=== PATIENT | male | born 1930 | race Caucasian/White ===

== ENCOUNTER 2017-01-26 08:34 | Outpatient (CLI) | payer MEDICARE, BC | END 2017-01-26 08:35 | disposition home or self-care (01) | LOC: BICMAMMO 08:34 | PROVIDERS: ATTEND Internal Medicine Rheumatology | DX: Z13.820 Encounter for screening for osteoporosis (principal) | CPT/HCPCS: 77080 ==

== ENCOUNTER 2019-04-27 20:24 | Inpatient (IN) | payer BC, MEDICARE ==
[2019-04-27 21:00] LABS: #Eosinphils 0.1 thou/uL (0.0-0.7); #Lymphocytes 0.5 thou/uL (1.20-3.40); #Monocytes 1.3 thou/uL (0.11-0.59); #Neutrophils 14.1 thou/uL (1.40-6.50); %Basophils 0.2 % (0.0-1.0); %Eosinophils 0.3 % (0.0-10.0); %Lymphocytes 3.3 % (21.0-51.0); %Monocytes 8.3 % (0.0-10.0); %Neutrophils 87.9 % (42.0-75.0); Hemoglobin 10.6 g/dL (14.0-18.0); Mean Corpuscular HGB CONC 32.9 g/dL (32.0-36.0); Mean Corpuscular Hemoglobin 33.8 pg (27.0-31.0); Mean Platelet Volume 7.7 fL (7.4-10.4); Platelet Count 170 thou/uL (130-400); RBC Distribution Width 13.9 % (11.5-14.5); Red Blood Cell (RBC) Count 3.13 mill/uL (4.70-6.10); White Blood Cell (WBC) Count 16.1 thou/uL (4.8-10.8)
[2019-04-27 21:06] LABS: INR-International Normal Ratio 1.7; PTT 25.7 SEC (22.9-36.1); Prothrombin Time 19.6 SEC (12.0-14.7)
[2019-04-27 21:19] LABS: ALT (SGPT) 28 U/L (8-55); AST (SGOT) 39 U/L (5-34); Albumin 3.1 g/dL (3.4-4.8); Alkaline Phosphatase 94 U/L (40-110); Anion Gap 16 mmol/L (10-20); BUN (Urea Nitrogen) 24 mg/dL (8.4-25.7); CK (CPK) 682 U/L (30-200); Calc. Creatinine Clearance 0 mL/min (70-130); Calcium 8.3 mg/dL (7.8-10.44); Carbon Dioxide 27 mmol/L (23-31); Chloride 98 mmol/L (98-107); Estimated GFR-MDRD 57; Globulin 2.4 g/dL (2.4-3.5); Glucose 297 mg/dL (83-110); Protein, Total 5.5 g/dL (5.8-8.1); Sodium 137 mmol/L (136-145)
[2019-04-27 23:18] LABS: Bilirubin Negative (Negative); Blood, Urine Large (Negative); Glucose, Urine (Dipstick) 250 mg/dL (Negative); Leukocyte Large (Negative); Nitrite Positive (Negative); Protein, Urine (Dipstick) 100 mg/dL (Neg-Trace); Urobilinogen 0.2 mg/dL (Less than 2)
[2019-04-27 23:20] LABS: Clarity CLOUDY (Clear)
[2019-04-27 23:21] LABS: Bacteria/HPF 4+ HPF (None Seen); RBC/HPF Greater than 50 HPF (0-3); WBC/HPF Greater Than 50 HPF (0-3)
[2019-04-27] MEDS ORDERED: Ondansetron PF 4 MG/2 ML Vial IVP PRN (23:46)
[2019-04-27] MEDS ORDERED: Sodium Chloride 0.9% 1,000 ML IV SCH (23:46)
[2019-04-27] MEDS ORDERED: Ondansetron ODT 4 MG TAB SL PRN (23:46)
[2019-04-28 00:36] VITALS: BMI 20.9
[2019-04-28] MEDS ORDERED: HumaLOG 300 UNITS/3 ML VIAL SC PRN (02:13)
[2019-04-28] MEDS ORDERED: Dextrose 50% Abboject 50 ML SYRINGE SLOW IVP PRN (02:13)
[2019-04-28] MEDS ORDERED: Dextrose 5% in Water 1,000 ML IV PRN (02:13)
--- NOTE | 2019-04-28 02:29 | PDOC.FPRHP ---
- History of Present Illness Chief Complaint: hematochezia History of Present Illness: Patient is an 89M with PMHx of afib on eliquis, CHF, CKD3, DM2, BPH with chronic gonzalez brought in from the [place] for hematochezia Patient reportedly had new-onset hematochezia at [facility] and was brought into the ED for further evaluation. He denies any cp, sob, or abdominal pain. Evaluation is limited due to patient's hx of dementia. ED Course: 1L NS - Allergies/Adverse Reactions Allergies Allergy/AdvReac Type Severity Reaction Status Date / Time doxycycline Allergy Verified 04/28/19 01:21 morphine Allergy Verified 04/28/19 01:21 - Home Medications Medication Instructions Recorded Confirmed Type Apixaban [Eliquis] 5 mg PO BID 04/27/19 04/28/19 History Ascorbic Acid [Vitamin C] 500 mg PO BID 04/27/19 04/28/19 History Aspirin [Ecotrin] 81 mg PO DAILY 04/27/19 04/28/19 History Bicalutamide [Casodex] 50 mg PO DAILY 04/27/19 04/28/19 History Calcium Citrate 500 mg PO BID 04/27/19 04/28/19 History Carvedilol 12.5 mg PO BID 04/27/19 04/28/19 History Cholecalciferol (Vitamin D3) 2,000 unit PO BID 04/27/19 04/28/19 History [Vitamin D3] Cyanocobalamin (Vitamin B-12) 1,000 mcg PO DAILY 04/27/19 04/28/19 History [Vitamin B-12] DULoxetine HCl [Cymbalta] 30 mg PO DAILY 04/27/19 04/28/19 History Digoxin [Lanoxin] 1 tab PO DAILY 04/27/19 04/28/19 History Famotidine [Pepcid] 20 mg PO BID 04/27/19 04/28/19 History Furosemide 1 tab PO DAILY 04/27/19 04/28/19 History HumaLOG 0 unit SC TID-WM PRN 04/27/19 04/28/19 History Insulin Detemir [Levemir] 4 unit SQ BID 04/27/19 04/28/19 History Lisinopril [Zestril] 1 tab PO DAILY 04/27/19 04/28/19 History Magnesium Oxide [Magnesium] 400 mg PO DAILY 04/27/19 04/28/19 History Melatonin 3 mg PO HS 04/27/19 04/28/19 History Multivit,Calc,Mins/Iron/Folic 1 tablet PO DAILY 04/27/19 04/28/19 History [Thera-M Caplet] Saw/Py/Net/Pumpk/Beta/Ly/Zn/Cu 1 each PO DAILY 04/27/19 04/28/19 History [Prostate Control Softgel] Tamsulosin HCl [Flomax] 0.4 mg PO DAILY 04/27/19 04/28/19 History Zinc Sulfate [Zinc-220] 220 mg PO DAILY 04/27/19 04/28/19 History metFORMIN [Glucophage] 1,000 mg PO BID- 04/27/19 04/28/19 History - History PMHx: afib on eliquis, CHF, CKD3, DM2, BPH with chronic gonzalez PSHx: unknown FHx: unknown Social: lives at [facility] - Review of Systems ROS unobtainable: due to mental status Respiratory: denies: shortness of breath Cardiovascular: denies: chest pain Gastrointestinal: reports: GI bleeding. denies: vomiting, abdominal pain - Vital signs BP: [131/77] HR: [93] RR: [19] Tmax: [98.2] Pox: [100]% on [RA] Wt: [69.3kg] - Physical Exam Constitutional: NAD, well developed HEENT: normocephalic and atraumatic, MMM Neck: supple, FROM Chest: no-tender to palpation, no lesions Heart: RRR, normal S1/S2 Lungs: CTAB, no respiratory distress Abdomen: soft, non-tender Musculoskeletal: normal structure, ROM grossly normal Neurological: no focal deficit, normal sensation Skin: other (sacral decubitus stage 1, R foot ulcer) Heme/Lymphatic: no unusual bruising or bleeding, no purpura -Psychiatric: A&O x 1 FMR H&P: Results - Labs Result Diagrams: 04/28/19 08:59 04/27/19 20:49 Lab results: WBC 16.1 thou/uL (4.8-10.8) H 04/27/19 20:49 Hgb 10.6 g/dL (14.0-18.0) L 04/27/19 20:49 Hct 32.2 % (42.0-52.0) L 04/27/19 20:49 MCV 103.0 fL (78.0-98.0) H 04/27/19 20:49 Plt Count 170 thou/uL (130-400) 04/27/19 20:49 Neutrophils % 87.9 % (42.0-75.0) H 04/27/19 20:49 Sodium 137 mmol/L (136-145) 04/27/19 20:49 Potassium 4.0 mmol/L (3.5-5.1) 04/27/19 20:49 Chloride 98 mmol/L (98-107) 04/27/19 20:49 Carbon Dioxide 27 mmol/L (23-31) 04/27/19 20:49 BUN 24 mg/dL (8.4-25.7) 04/27/19 20:49 Creatinine 1.20 mg/dL (0.7-1.3) 04/27/19 20:49 Glucose 297 mg/dL (83-110) H 04/27/19 20:49 Calcium 8.3 mg/dL (7.8-10.44) 04/27/19 20:49 Total Bilirubin 1.0 mg/dL (0.2-1.2) 04/27/19 20:49 AST 39 U/L (5-34) H 04/27/19 20:49 ALT 28 U/L (8-55) 04/27/19 20:49 Alkaline Phosphatase 94 U/L (40-110) 04/27/19 20:49 Creatine Kinase 682 U/L (30-200) H 04/27/19 20:49 Serum Total Protein 5.5 g/dL (5.8-8.1) L 04/27/19 20:49 Albumin 3.1 g/dL (3.4-4.8) L 04/27/19 20:49 Urine Ketones 15 mg/dL (Negative) A 04/27/19 23:02 Urine Blood Large (Negative) A 04/27/19 23:02 Urine Nitrite Positive (Negative) A 04/27/19 23:02 Ur Leukocyte Esterase Large (Negative) H 04/27/19 23:02 Urine RBC Greater than 50 HPF (0-3) A 04/27/19 23:02 Urine WBC Greater Than 50 HPF (0-3) A 04/27/19 23:02 Ur Squamous Epith Cells 4-6 HPF (0-3) A 04/27/19 23:02 Urine Bacteria 4+ HPF (None Seen) A 04/27/19 23:02 FMR H&P: A/P - Problem List (1) Macrocytic anemia Current Visit: Yes Status: Acute Code(s): D53.9 - NUTRITIONAL ANEMIA, UNSPECIFIED (2) Afib Current Visit: Yes Status: Acute Code(s): I48.91 - UNSPECIFIED ATRIAL FIBRILLATION (3) CHF (congestive heart failure) Current Visit: Yes Status: Acute Code(s): I50.9 - HEART FAILURE, UNSPECIFIED (4) DM2 (diabetes mellitus, type 2) Current Visit: Yes Status: Acute (5) Dementia Current Visit: Yes Status: Acute Code(s): F03.90 - UNSPECIFIED DEMENTIA WITHOUT BEHAVIORAL DISTURBANCE - Plan Patient is an 89M with PMHx of afib on eliquis, CHF, CKD3, DM2, BPH with chronic gonzalez brought in from the [place] for [place]zia #Hematochezia #Macrocytic anemia -H/H 10.6/32/2 -systolic BP 100 in ED but then improved to 130 before getting fluids; vss -reported hematochezia at [facility] -FOBT pending -Will hold patient's eliquis at this time -will call patient's family to discuss their desires for him to possibly have GI scope and/or discontinue his home eliquis #Dementia -limited hx -will call [place] for more information #CHF -continue home meds #DM2 -continue home meds -ACHS -ISS #BPH -chronic gonzalez in place -gonzalez care -UA dirty but also many LE -afebrile Diet: HH, CC DVTppx: SCDs due to GI Bleed Dispo: obs for hematochezia workup; plan to call patient's family to discuss their desires for patient's plan of care Code: DNAR according to patient's FMR H&P: Upper Level - Plan Date/Time: 04/28/19 0229 Mik Denise MD, have evaluated this patient and agree with findings/plan as outlined by risk management intern resident. Pertinent changes/additions are listed here. Gustavo Gutiérrez is an 89 year old M with a PMH of A fib on eliquis, CHF, Dementia, DM2, BPH with chronic indwelling gonzalez who was sent to [facility] from [facility] due to episode of passing several large clots per rectum this evening at [facility]. Nursing staff reported no new complaints from patient all day and they he has been eating well and walking around and speaking normally. Did not complain of any new pain, fever, chills, chest pain , dyspnea, palpitations, n/v, abdominal pain. No known hx of GI bleeding. Pt is A&OX1 at baseline. Recently admitted to [facility] for CHF exacerbation and right sided pleural effusion and was recently discharged to [facility]. In the ED, vitals were BP 105/56 initially but improved to 130s systolic prior to receiving fluids. HR 80, RR 18, T 98.2, O2 sat 99% on RA. He received 1 L NS in the ED. Labs were significant for CK 682 , WBC 16.1, Hg 10.6, Hct 32.2, Na 137, Cr 1.2, blood glucose 297, INR 1.7. On exam, he is A&O x1, no acute distress, MMM, AT/NC, irregularly irregular rhythm , normal rate, lungs CTAB, abdomen soft, NT/ND, no guarding or rigidity, indwelling gonzalez in place, no LE edema. Admitting patient to inpatient tele for acute GI bleed. Will trend H/H and transfuse as needed. S/p 1 L NS. BPs stable. Will give gentle IVFs and monitor for fluid overload. Hold anticoagulation at this time. Check FOBT. Will discuss management options/ interventions with patient's in the morning. Anticipate hospital stay >48 hours. Will continue patient's home medication for chronic medical conditions. Lantus and SSI for DM2. Digoxin for CHF/afib. Please see risk management intern note above for full H&P, which I have reviewed and agree with. Code status: DNAR, discussed with patient's Addendum - Attending - Attending Attestation Date/Time: 04/28/19 5199 I personally evaluated the patient and discussed the management with [Jose] I agree with the History, Examination, Assessment and Plan documented above with any addition or exceptions noted below. Patient pulled cath and passed several clots per rectum just before my evaluation therefore GI was consulted and planned discussion with family RE code status and treatment options.
[2019-04-28 03:25] LABS: Hemoglobin 9.7 g/dL (14.0-18.0)
[2019-04-28] MEDS: Insulin Glargine 4 UNITS in Pre-Filled Syringe 1 EACH SC SCH ×2 (09:00→23:54)
[2019-04-28] MEDS ORDERED: [UNRECOGNIZED DRUG - MIXTURE] PO SCH (09:00)
[2019-04-28] MEDS ORDERED: INSULIN DETEMIR 4 UNIT SQ SCH (09:00)
[2019-04-28 09:24] LABS: Hemoglobin 10.3 g/dL (14.0-18.0)
--- NOTE | 2019-04-28 12:26 | PDOC.BPN ---
- Brief Progress Note Daughter at bedside. Hx received: Pt had prostate CA 8 years ago treated with radiation therapy. He has had rectal bleeding off and on over the last 8 years and has been told he has bleeding ulcers versus exposed vessels that need treated. states she thinks he would want to seek treatment for the rectal bleeding, but is unsure of his wishes to be resuscitated and will need more time to think and talk over with family of his code status. GI consulted. Appreciate recs form Dr. 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 Palliative consulted for help with code status decisions with next of kin with .
[2019-04-28] MEDS: Furosemide 40 MG TAB PO SCH (14:23)
[2019-04-28] MEDS: Lisinopril 5 MG TAB PO SCH (14:23)
[2019-04-28] MEDS: Carvedilol 6.25 MG TAB PO SCH ×2 (14:23→20:03)
[2019-04-28] MEDS: Cyanocobalamin (Vitamin B-12) 1,000 MCG TAB PO SCH (14:23)
[2019-04-28] MEDS: Ascorbic Acid 500 mg Chewable Tablet PO SCH ×2 (14:23→20:03)
[2019-04-28] MEDS: Magnesium Oxide 400 MG TAB PO SCH (14:23)
[2019-04-28] MEDS: Calcium Carbonate 500 MG TAB PO SCH ×2 (14:24→20:03)
[2019-04-28] MEDS: Multivitamin W/ Minerals 1 TAB PO SCH (14:24)
[2019-04-28] MEDS: Aspirin 81 mg Enteric Coated Tablet PO SCH (14:24)
[2019-04-28] MEDS: Famotidine 20 MG TAB PO SCH (14:24)
[2019-04-28] MEDS: DULoxetine 30 MG CAP PO SCH (14:24)
[2019-04-28] MEDS: Digoxin 0.125 MG TAB PO SCH (14:24)
[2019-04-28] MEDS: Tamsulosin HCl 0.4 MG CAP PO SCH (14:24)
[2019-04-28] MEDS: Zinc Sulfate 220 MG CAP PO SCH (14:25)
[2019-04-28] MEDS: Bicalutamide 50 MG TAB PO SCH (14:31)
[2019-04-28] MEDS: Pantoprazole 40 MG VIAL IVP SCH (14:33)
--- NOTE | 2019-04-28 18:44 | CON ---
DATE OF CONSULTATION: 04/28/2019 REASON FOR CONSULTATION: Hematochezia. CONSULTING PROVIDER: Aimee Garrison DO HISTORY OF PRESENT ILLNESS: The patient is an 89-year-old male with past medical history of atrial fibrillation, on Eliquis; congestive heart failure; chronic kidney disease, stage 3; diabetes; BPH with chronic indwelling Puente catheter; prostate cancer status post radiation therapy; and qxaj-it-mnqjglls dementia, presenting with complaints of hematochezia. The patient is a fairly poor historian, so the majority of the information obtained was through the patient's daughter as well as chart review. Per the patient's daughter, she states that he had been having intermittent episodes of hematochezia as far back as 4 to 5 years ago. At that time, he had been evaluated for possible cauterization. However, approximately 4 years ago, he began having lessen symptoms of hematochezia. With the decreased frequency, he was ultimately lost to follow up. However, over the last 1 to 2 months, he has been having increasing amounts of bright red blood per rectum, mixed with blood clot and stool. With a recent hospitalization at the [facility], showing spotting of bright red blood per rectum, but was not intervened upon at that time. The patient states that he has approximately 1 solid bowel movement every 2 to 3 days, that is solid in consistency, but he does require increased straining and abdominal pressure in order to facilitate defecation. Otherwise, the patient denies any nausea, vomiting, fevers, chills, hematemesis, melena, abdominal pain, diarrhea, or constipation. Of note, the patient has never undergone a colonoscopy before, but instead may have been obtaining screening for colorectal cancer via FOBT/FIT cards. Upon conversation with the patient's daughter, she is reluctant for the patient to undergo full colonoscopy at this time, especially if the bleeding is not severe. REVIEW OF SYSTEMS: A 10-category review of systems was obtained with all responses negative except for the pertinent positives as listed in HPI. PAST MEDICAL HISTORY: As per HPI. PAST SURGICAL HISTORY: Unknown. FAMILY HISTORY: The patient's daughter denies any GI malignancies. SOCIAL HISTORY: The daughter denies any tobacco, alcohol, or illicit drug use. Currently residing at the [facility]. MEDICATIONS: Outpatient medications reviewed. ALLERGIES: DOXYCYCLINE AND MORPHINE. OBJECTIVE: VITAL SIGNS: Temperature 97.5, pulse 100, blood pressure 117/55, respiratory rate 19, and saturating 95% on room air. GENERAL: The patient was lying in bed, in no acute distress. Alert and oriented x2. HEENT: Normocephalic and atraumatic. NECK: Supple. No JVD or scleral icterus noted. CARDIOVASCULAR: Regular rate and rhythm with no discernable murmurs, gallops, or rubs. RESPIRATORY: Clear to auscultation bilaterally with diminished breath sounds in the bilateral lower lobes. ABDOMEN: Normoactive bowel sounds. Soft, nontender, and nondistended, although may have mild tenderness to palpation in the suprapubic region. EXTREMITIES: No cyanosis, clubbing, or edema. LABORATORY DATA: CBC with a white blood cell count of 16.1, hemoglobin 10.3, hematocrit 30.9, and platelets 170. INR 1.7. Chemistry with a sodium of 137, potassium 4, chloride 98, CO2 of 27, BUN 24, creatinine 1.2, and glucose 297. AST 39, ALT 28, alkaline phosphatase 94, total bilirubin 1.0, and creatine kinase 682. IMAGING DATA: No current GI imaging is available for review. ASSESSMENT AND PLAN: The patient is an 89-year-old male with past medical history of atrial fibrillation, on chronic anticoagulation with Eliquis; congestive heart failure; chronic kidney disease, stage 3; diabetes; benign prostatic hypertrophy with chronic indwelling Puente catheterization; dbfn-ht-tyhpduyb dementia; and prostate cancer status post radiation therapy in the past, presenting with complaints of hematochezia. Hematochezia: The patient is presenting with a history of hematochezia that had been occurring intermittently as early as 4 to 5 years ago, but had spontaneously resolved. However, the patient is now having intermittent episodes of bright red blood per rectum with clot material that has been worsening over the last 1 to 2 months and usually associated with having a bowel movement (no discernible grossly bloody bowel movements). Based on his current hemoglobin and hematocrit and the amount of blood seen on changing the patient here in-house, the degree of blood loss seems to be relatively minor. Current differential could include radiation proctitis (most likely), stercoral colitis, ischemic colitis, arteriovenous malformation, diverticular bleed, Dieulafoy lesion, and/or gastrointestinal neoplasm. RECOMMENDATIONS: 1. Would continue to trend his hemoglobin and hematocrit and transfuse as necessary to maintain the hemoglobin and hematocrit of 7/21. 2. Continue to monitor clinically for signs of active GI bleeding. 3. Would hold any anticoagulation in this patient for at least the next 48 hours. 4. The possibility of colonoscopy was broached with the patient's daughter. At this time, it seemed that she is reluctant to proceed with this modality. At this time, I would continue to observe the patient, and if he continues to have significant hematochezia and/or drop in his hemoglobin and hematocrit, I would then proceed with colonoscopy on Tuesday morning secondary to concurrent use of Eliquis and need for washout. If the patient's hemoglobin and hematocrit stabilizes or if his hematochezia stops, then we would reconsider with the patient's daughter. We will continue to follow. Please call with any questions. Job ID: [id number]
[2019-04-28] MEDS: HumaLOG 300 UNITS/3 ML VIAL SC PRN (19:40)
[2019-04-28] MEDS: Melatonin 3 MG TAB PO SCH (20:03)
[2019-04-29 04:24] LABS: #Eosinphils 0.1 thou/uL (0.0-0.7); #Lymphocytes 0.8 thou/uL (1.20-3.40); #Monocytes 1.3 thou/uL (0.11-0.59); #Neutrophils 10.1 thou/uL (1.40-6.50); %Basophils 0.1 % (0.0-1.0); %Eosinophils 0.5 % (0.0-10.0); %Lymphocytes 6.6 % (21.0-51.0); %Monocytes 10.6 % (0.0-10.0); %Neutrophils 82.3 % (42.0-75.0); Mean Corpuscular HGB CONC 32.7 g/dL (32.0-36.0); Mean Corpuscular Hemoglobin 33.8 pg (27.0-31.0); Platelet Count 189 thou/uL (130-400); RBC Distribution Width 13.8 % (11.5-14.5); Red Blood Cell (RBC) Count 2.97 mill/uL (4.70-6.10); White Blood Cell (WBC) Count 12.3 thou/uL (4.8-10.8)
--- NOTE | 2019-04-29 06:25 | PDOC.FM ---
- Subjective Subjective: Pt resting well. had X4 bloody diapers overnight, small amount. Daughter spoke with of patient, next of kin and they have decided to change the code status to DNR. - Objective MAR Reviewed: Yes Vital Signs & Weight: Vital Signs (12 hours) Temp Pulse Resp BP BP Pulse Ox 04/29/19 03:59 96.8 F L 79 18 90/53 L 97 04/28/19 20:03 116/59 L 04/28/19 20:00 97.1 F L 75 16 116/59 L 98 Weight Admit Weight 72.121 kg Weight 68.901 kg I&O: 04/27/19 04/28/19 04/29/19 06:59 06:59 06:59 Intake Total 1400 480 Output Total 700 Balance 700 480 Result Diagrams: 04/29/19 03:56 04/27/19 20:49 Phys Exam - Physical Examination Constitutional: NAD HEENT: moist MMs, sclera anicteric Neck: no JVD, supple Respiratory: no wheezing, no rales, no rhonchi, clear to auscultation bilateral Cardiovascular: RRR, no rub Gastrointestinal: soft, non-tender, no distention, positive bowel sounds Musculoskeletal: no edema, pulses present Neurological: moves all 4 limbs Deviation from normal: A&O X1 Deviation from normal: R foot dressing clean and dry. Dx/Plan (1) Radiation proctitis Code(s): K62.7 - RADIATION PROCTITIS Status: Acute (2) Lower GI bleed Code(s): K92.2 - GASTROINTESTINAL HEMORRHAGE, UNSPECIFIED Status: Acute (3) DM2 (diabetes mellitus, type 2) Status: Acute (4) Dementia Code(s): F03.90 - UNSPECIFIED DEMENTIA WITHOUT BEHAVIORAL DISTURBANCE Status: Acute (5) Macrocytic anemia Code(s): D53.9 - NUTRITIONAL ANEMIA, UNSPECIFIED Status: Acute - Plan Plan: Patient is an 89M with PMHx of afib on eliquis, CHF, CKD3, DM2, BPH with chronic gonzalez brought in from the [place] for hematochezia #Hematochezia 2/2 radiation proctitis - GI consulted, Dr. Clark, appreciate recs - Will move forward with colonoscopy if pt continues to have BRBPR. If bleeding slows family may decide to treat conservatively. At this time the next of kin would like to proceed with colonoscopy. - Hg stable. transfuse if <7 - discussion of care goals with , NOK: states she would like further workup and interventions taken if necessary - Code status discussed with and daughter, States pt would desire to be DNAR. Palliative care consulted for further discussion of advanced directives/ MPOA. Appreciate recommendations. #Macrocytic anemia -H/H 10.6/32.2 -systolic BP 100 in ED but then improved to 130 before getting fluids; vss -reported hematochezia at [facility] -FOBT + -Will hold patient's eliquis and ASA at this time -Discussion with family to d/c eliquis but continue only ASA on D/C for ACT for a fib ppx. #Dementia -limits hx and discussion with pt as he is unable to speak for himself at this time. #CHF -continue home meds -echo results at [facility], family unsure of EF. #DM2 -continue home meds -ACHS -ISS #Hx of Prostate CA 8 years ago s/p radiation therapy. -Pt has had gonzalez cath for 2 weeks approximately. -Pt pulled gonzalez out himself on 04/27. He has been urinating on his own since then. Will keep gonzalez out. -UA dirty but also many LE and squamous cells. -afebrile Diet: HH, CC DVTppx: SCDs due to GI Bleed Dispo: inpt for Lower GI bleed. GI consulted. >48 hr stay Code: DNAR, per next of kin. Addendum - Attending - Attending Attestation Date/Time: 04/29/19 1001 I personally evaluated the patient and discussed the management with [Bladimir] I agree with the History, Examination, Assessment and Plan documented above with any addition or exceptions noted below. Family to decide colonoscopy vs DC and monitor as bleeding seems to have stabilized
[2019-04-29] MEDS: Lisinopril 5 MG TAB PO SCH (09:16)
[2019-04-29] MEDS: Aspirin 81 mg Enteric Coated Tablet PO SCH (09:16)
[2019-04-29] MEDS: Zinc Sulfate 220 MG CAP PO SCH (09:16)
[2019-04-29] MEDS: Multivitamin W/ Minerals 1 TAB PO SCH (09:17)
[2019-04-29] MEDS: Insulin Glargine 4 UNITS in Pre-Filled Syringe 1 EACH SC SCH ×2 (09:17→21:05)
[2019-04-29] MEDS: Famotidine 20 MG TAB PO SCH (09:17)
[2019-04-29] MEDS: DULoxetine 30 MG CAP PO SCH (09:17)
[2019-04-29] MEDS: Magnesium Oxide 400 MG TAB PO SCH (09:17)
[2019-04-29] MEDS: Cyanocobalamin (Vitamin B-12) 1,000 MCG TAB PO SCH (09:18)
[2019-04-29] MEDS: Furosemide 40 MG TAB PO SCH (09:18)
[2019-04-29] MEDS: Ascorbic Acid 500 mg Chewable Tablet PO SCH ×2 (09:18→21:04)
[2019-04-29] MEDS: Calcium Carbonate 500 MG TAB PO SCH ×2 (09:18→21:05)
[2019-04-29] MEDS: Carvedilol 6.25 MG TAB PO SCH ×2 (09:18→21:04)
[2019-04-29] MEDS: Digoxin 0.125 MG TAB PO SCH (09:18)
[2019-04-29] MEDS: Tamsulosin HCl 0.4 MG CAP PO SCH (09:18)
[2019-04-29] MEDS: Pantoprazole 40 MG VIAL IVP SCH (09:19)
[2019-04-29] MEDS: Bicalutamide 50 MG TAB PO SCH (09:19)
[2019-04-29] MEDS: HumaLOG 300 UNITS/3 ML VIAL SC PRN ×3 (09:30→19:12)
[2019-04-29] MEDS ORDERED: GoLYTELY 4,000 ml Bottle PO SCH (11:15)
--- NOTE | 2019-04-29 11:28 | PRG ---
DATE OF SERVICE: 04/29/2019 REASON FOR CONSULTATION: Hematochezia. SUBJECTIVE: Per the patient's attendant, over the night he had approximately 2 to 3 very small volume bowel movements. They were considered more "smears" with a reddish tinge but no overt bleeding. Otherwise, there was no acute events or problems. Currently, he denies any nausea, vomiting, fevers, chills, abdominal pain, hematemesis, melena, or hematochezia. OBJECTIVE: VITAL SIGNS: Temperature 97, pulse 102, blood pressure 101/58, respiratory rate 19, saturating 95% on room air. GENERAL: The patient was lying in bed, in no acute distress. Alert and oriented x2. CARDIOVASCULAR: Regular rate and rhythm. RESPIRATORY: Clear to auscultation bilaterally. ABDOMEN: Normoactive bowel sounds. Soft, nondistended. Mild to moderate tenderness to palpation in the left lower quadrant and suprapubic regions. EXTREMITIES: No cyanosis, clubbing, or edema. LABORATORY DATA: CBC with a white blood cell count of 12.3, hemoglobin 10, hematocrit 30.7, platelets 189. IMAGING DATA: No current GI imaging is available for review. ASSESSMENT AND PLAN: The patient is an 89-year-old male with past medical history of atrial fibrillation, on chronic anticoagulation with Eliquis; congestive heart failure; chronic kidney disease stage 3; diabetes; BPH with chronic indwelling Puente catheterization, wyac-vw-ditsfqqi dementia; and prostate cancer, status post radiation therapy, presenting with hematochezia. Hematochezia: The patient is presenting with a longstanding history of hematochezia that had resolved approximately 4 to 5 years ago but now within the last 1 to 2 months, has increased in terms of its frequency of bright red blood per rectum. Based on current observation and trending of his H and H, the amount of blood loss seen appears to be relatively minimal. Currently, the differential could include radiation proctitis (most likely), stercoral colitis, ischemic colitis, arteriovenous malformation, diverticular bleed, Dieulafoy lesion and/or gastrointestinal neoplasm (the patient has never had a full colonoscopy). RECOMMENDATIONS: 1. Would continue to trend his H and H and transfuse as necessary to maintain an H and H of 7/21. 2. Continue to monitor clinically for signs of active GI bleeding. 3. Would continue to hold any anticoagulation. 4. Would need to confer with the patient's and daughter about proceeding with colonoscopy at this time given his DNR/DNI status, which would need to be reversed in order to undergo colonoscopy. If colonoscopy is planned, then would proceed with it tomorrow morning after GoLYTELY prep tonight. We will continue to follow, please call with any questions. Job ID: [id number]
[2019-04-29] MEDS: Melatonin 3 MG TAB PO SCH (21:05)
[2019-04-30 04:18] LABS: #Eosinphils 0.1 thou/uL (0.0-0.7); #Lymphocytes 0.7 thou/uL (1.20-3.40); #Monocytes 1.3 thou/uL (0.11-0.59); #Neutrophils 9.2 thou/uL (1.40-6.50); %Basophils 0.2 % (0.0-1.0); %Eosinophils 0.6 % (0.0-10.0); %Lymphocytes 6.5 % (21.0-51.0); %Monocytes 11.2 % (0.0-10.0); %Neutrophils 81.5 % (42.0-75.0); Hemoglobin 9.9 g/dL (14.0-18.0); Mean Corpuscular Hemoglobin 32.9 pg (27.0-31.0); Mean Corpuscular Volume 99.6 fL (78.0-98.0); Mean Platelet Volume 7.6 fL (7.4-10.4); Platelet Count 202 thou/uL (130-400); RBC Distribution Width 13.5 % (11.5-14.5); Red Blood Cell (RBC) Count 3.02 mill/uL (4.70-6.10); White Blood Cell (WBC) Count 11.3 thou/uL (4.8-10.8)
[2019-04-30 04:44] LABS: Anion Gap 13 mmol/L (10-20); BUN (Urea Nitrogen) 26 mg/dL (8.4-25.7); CK (CPK) 90 U/L (30-200); Calc. Creatinine Clearance 55 mL/min (70-130); Calcium 7.7 mg/dL (7.8-10.44); Carbon Dioxide 31 mmol/L (23-31); Chloride 101 mmol/L (98-107); Estimated GFR-MDRD 80; Glucose 115 mg/dL (83-110); Potassium 3.1 mmol/L (3.5-5.1); Sodium 142 mmol/L (136-145)
--- NOTE | 2019-04-30 06:25 | PDOC.FM ---
- Subjective Subjective: Pt was unable to have colonoscopy this morning due to inadequate prep. Put off until tomorrow. Continues to display baseline dementia. Sitter in the room, states family is being contacted regarding postponement of colonoscopy. - Objective Vital Signs & Weight: Vital Signs (12 hours) Temp Pulse Resp BP BP Pulse Ox 04/30/19 04:00 98 F 90 19 100/60 100 04/29/19 21:04 121/77 04/29/19 20:14 97.6 F 106 H 20 121/77 97 Weight Admit Weight 72.121 kg Weight 68.492 kg I&O: 04/28/19 04/29/19 04/30/19 06:59 06:59 06:59 Intake Total 1400 480 960 Output Total 700 3 Balance 700 480 957 Result Diagrams: 04/30/19 04:01 04/30/19 04:01 Phys Exam - Physical Examination Constitutional: NAD HEENT: sclera anicteric Neck: full ROM No respiratory distress Irregularly irregular Neurological: non-focal Deviation from normal: A&O x 1 Dx/Plan (1) Afib Code(s): I48.91 - UNSPECIFIED ATRIAL FIBRILLATION Status: Acute (2) CHF (congestive heart failure) Code(s): I50.9 - HEART FAILURE, UNSPECIFIED Status: Acute (3) DM2 (diabetes mellitus, type 2) Status: Acute (4) Dementia Code(s): F03.90 - UNSPECIFIED DEMENTIA WITHOUT BEHAVIORAL DISTURBANCE Status: Acute (5) Lower GI bleed Code(s): K92.2 - GASTROINTESTINAL HEMORRHAGE, UNSPECIFIED Status: Acute (6) Macrocytic anemia Code(s): D53.9 - NUTRITIONAL ANEMIA, UNSPECIFIED Status: Acute (7) Radiation proctitis Code(s): K62.7 - RADIATION PROCTITIS Status: Acute - Plan Plan: Patient is an 89M with PMHx of afib on eliquis, CHF, CKD3, DM2, BPH with chronic gonzalez [place] Hematochezia 2/2 radiation proctitis - GI consulted, Dr. Clark, appreciate recs - states he will perform colonoscopy today if pt's family is willing to revoke DNAR for procedure - Hgb reamins stable. transfuse if <08/27 Macrocytic anemia 2/2 GI bleed -Will hold patient's eliquis and ASA at this time -Discussion with family to d/c eliquis but continue only ASA on D/C for ACT for a fib ppx. Dementia -limits hx and discussion with pt as he is unable to speak for himself at this time. CHF -continue home meds -echo results at [facility], family unsure of EF. DM2 -continue home meds -ACHS -ISS Hx of Prostate CA 8 years ago s/p radiation therapy. -Pt has had gonzalez cath for 2 weeks approximately. -Pt pulled gonzalez out himself on 04/27. He has been urinating on his own since then. Will keep gonzalez out. -UA dirty but also many LE and squamous cells. -afebrile Diet: HH, CC DVTppx: SCDs due to GI Bleed Code: DNAR, per next of kin. Dispo: inpt for Lower GI bleed. GI consulted. >48 hr stay PCP: Dr. Cabrales/Vishal NOBLE Addendum - Attending - Attending Attestation Date/Time: 04/30/19 1052 I personally evaluated the patient and discussed the management with Dr. Jimenez. I agree with the History, Examination, Assessment and Plan documented above with any addition or exceptions noted below. Patient stable. Awaiting c-scope tomorrow. Awaiting GI recs. H/H stable.
[2019-04-30] MEDS ORDERED: Potassium Chloride 20 MEQ in Premix Bag 1 BAG IVPB SCH (06:30)
[2019-04-30] MEDS: DULoxetine 30 MG CAP PO SCH (09:12)
[2019-04-30] MEDS: Digoxin 0.125 MG TAB PO SCH (09:12)
[2019-04-30] MEDS: Lisinopril 5 MG TAB PO SCH (09:12)
[2019-04-30] MEDS: Multivitamin W/ Minerals 1 TAB PO SCH (09:12)
[2019-04-30] MEDS: Cyanocobalamin (Vitamin B-12) 1,000 MCG TAB PO SCH (09:12)
[2019-04-30] MEDS: Zinc Sulfate 220 MG CAP PO SCH (09:12)
[2019-04-30] MEDS: Calcium Carbonate 500 MG TAB PO SCH (09:12)
[2019-04-30] MEDS: Aspirin 81 mg Enteric Coated Tablet PO SCH (09:12)
[2019-04-30] MEDS: Tamsulosin HCl 0.4 MG CAP PO SCH (09:12)
[2019-04-30] MEDS: Furosemide 40 MG TAB PO SCH (09:13)
[2019-04-30] MEDS: Pantoprazole 40 MG VIAL IVP SCH (09:13)
[2019-04-30] MEDS: Magnesium Oxide 400 MG TAB PO SCH (09:13)
[2019-04-30] MEDS: Bicalutamide 50 MG TAB PO SCH (09:13)
[2019-04-30] MEDS: Ascorbic Acid 500 mg Chewable Tablet PO SCH (09:13)
[2019-04-30] MEDS: Carvedilol 6.25 MG TAB PO SCH (09:13)
[2019-04-30] MEDS: Insulin Glargine 4 UNITS in Pre-Filled Syringe 1 EACH SC SCH (09:42)
--- NOTE | 2019-04-30 10:39 | PQF ---
SYDNEE ASHBYSUSHMA [id number] [facility]-291 [id number] CLINICAL DOCUMENTATION IMPROVEMENT CLARIFICATION FORM: ICD-10 Updated PLEASE DO AN ADDENDUM TO THE PROGRESS NOTE WITH ANY DOCUMENTATION UPDATES OR ADDITIONS AND CARRY THROUGH TO DC SUMMARY. THANK YOU. Date: 04/30/2019 ATTN: DR. Tia RENTERIA, DR. Brayden PAREDES Please exercise your independent, professional judgment in responding to the clarification form. Clinical indicators are provided on the bottom of this form for your review Please check appropriate box(s): [ ] Protein Calorie Malnutrition: [ ] Mild [ X ] Moderate [ ] Severe [ ] Other Malnutrition (please specify) __ [ ] Cachexia [ ] Other diagnosis [ ] Unable to determine In addition, please specify: Present on Admission (POA): [ X ] Yes [ ] No [ ] Unable to determine CLINICAL INDICATORS - SIGNS / SYMPTOMS / LABS / RESULTS AND LOCATION IN MR 04/28/2019 RD ASSESSMENT: MODERATE TO SEVERE TEMPORAL WASTING WITH SEVERE FAT LOSS TO THE RIB AREA SUGGESTIVE OF SEVERE MALNUTRITION IN THE CONTEXT OF CHRONIC CONDITION --BMI 19.9 RISK: GI BLEED, ADVANCED AGE (89), DEMENTIA, HX DM2 (Chloé&P/IRASEMA) 04/27 TREATMENTS: GI CONSULT ( 04/27) DIETARY CONSULT 04/27 RECOMMENDED TPN 04/27 Moderate Malnutrition (in acute illness) Energy Intake: <75% of estimated energy requirement for > 7 days Weight Loss: 1-2%/1 week; 5%/ 1 month; 7.5%/3 months Other: mild body fat loss; mild muscle mass loss; mild fluid accumulation; Severe Malnutrition (in acute illness) Energy Intake: < 50% of estimated energy requirement for > 5 days Weight Loss: >1-2%/1 week; >5%/1 month; >7.5%/3 months Other: moderate body fat loss; moderate muscle mass loss; moderate- severe fluid accumulation; measurably reduced medicaid analyst strength Moderate Malnutrition (in chronic illness) Energy Intake: <75% of estimated energy requirement for >1 month Weight Loss: 5%/1 month; 7.5%/3 months; 10%/6 months; 20%/1 year Other: mild body fat loss; mild muscle mass loss; mild fluid accumulation Severe Malnutrition (in chronic illness) Energy Intake: <75% of estimated energy requirement for >1 month Weight Loss: >5%/1 month; >7.5%/3 months; >10%/6 months; >20%/1 year Other: severe body fat loss; severe muscle mass loss; severe fluid accumulation ; measurably reduced medicaid analyst strength THANK YOU! VANCE (This form is maintained as a part of the permanent medical record) 2014 [employer]. All Rights Reserved MARY KATE [email or web address] [phone] MTDD
[2019-04-30] MEDS: HumaLOG 300 UNITS/3 ML VIAL SC PRN ×2 (11:07→17:24)
--- NOTE | 2019-04-30 11:19 | PRG ---
DATE OF SERVICE: 04/30/2019 REASON FOR CONSULTATION: Hematochezia. SUBJECTIVE: Overnight, the patient was not able to adequately drink the GoLYTELY prep and apparently only drank one-quarter of the offered GoLYTELY. As such, he did not have any bowel movements and was not adequately ready for the colonoscopy today. Upon further conferring with the patient's medical power of cryptologic linguist (the patient's ), the utility of the colonoscopy was again brought into question given his stable H and H and significant decrease in the amount of hematochezia that he is having (no hematochezia within the last 24 hours). She would like to hold on any invasive procedures at this time. Otherwise, there was no other acute events or problems overnight. Currently, he denies any nausea, vomiting, fevers, chills, abdominal pain, hematemesis, melena, or hematochezia. OBJECTIVE: VITAL SIGNS: Temperature 97.5, pulse 77, blood pressure 124/56, respiratory rate 18, and saturating 98% on room air. GENERAL: The patient was lying in bed, in no acute distress. Alert and oriented x2. CARDIOVASCULAR: Regular rate and rhythm. RESPIRATORY: Clear to auscultation bilaterally. ABDOMEN: Normoactive bowel sounds. Soft, nontender, and nondistended. EXTREMITIES: No cyanosis, clubbing, or edema. LABORATORY DATA: CBC with a white blood cell count of 11.3, hemoglobin 9.9, hematocrit 30.1, and platelets 202. Chemistry with a sodium of 142, potassium 3.1, chloride 101, CO2 of 31, BUN 26, creatinine 0.9, and glucose 115. IMAGING DATA: No current GI imaging is available for review. ASSESSMENT AND PLAN: The patient is an 89-year-old male with past medical history of atrial fibrillation, on chronic anticoagulation with Eliquis (held during this admission), congestive heart failure, chronic kidney disease, stage 3, diabetes, benign prostatic hyperplasia with chronic indwelling Puente catheter, [id number] dementia, and prostate cancer, status post radiation therapy, presenting with hematochezia. Hematochezia: The patient initially presented with worsening hematochezia over the last 1 to 2 months, characterized as bright red blood per rectum in addition to significant blood clots. However, during the course of this hospitalization, this has since resolved and he has had stabilization of his H and H not indicative of further GI bleeding. 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 However, at this time, given the cessation of his hematochezia and stabilization of his H and H on discussion with medical [id number], she would like to refrain from invasive procedures at this time. RECOMMENDATIONS: 1. We would continue to trend his H and H and transfuse as necessary to maintain an H and H of 08/27. 2. Continue to monitor clinically for signs of active GI bleeding. 3. 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 4. We will hold on any colonoscopy for further evaluation given his significant medical comorbidities and per medical power of cryptologic linguist's preference. Instead, I would only recommend monitoring at this time. We will sign off. Please call with any questions. Job ID: [id number]
--- NOTE | 2019-04-30 13:56 | PDOC.PALCO ---
Palliative Care Consult - Consult Details Requesting Physician: Dr Garrison Reason for Consult: advance directives assistance, family support Family Members Present: Daughter Joanne, spoke with on the phone - Pertinent HPI 89 year old male who was discharged from [facility] earlier in the week to [facility], who had an onset of rectal bleeding and presented to the emergency room for further evaluation. He was admitted for further management, and GI studies were attempted but secondary to patient inability to drink lia it was not performed. - Social History Smoking Status: Unknown if ever smoked Smoking: no tobacco exposure Alcohol Use: none Drug Use History: none Living Situation: (recent admission to [facility]) - Medications MAR Reviewed: Yes - Allergies Allergies/Adverse Reactions: Allergies Allergy/AdvReac Type Severity Reaction Status Date / Time doxycycline Allergy Verified 04/28/19 01:21 morphine Allergy Verified 04/28/19 01:21 - Subjective Initial visit the family was not at bedside, sitter present. Joanne the patient daughter arrived. Patient confused and unable to participate in ROS. - ROS Non Response: due to mental status - Objective Vital Signs: Vital Signs - Most Recent Temp Pulse Resp BP Pulse Ox 97.7 F 83 18 136/61 94 L 04/30/19 11:11 04/30/19 11:11 04/30/19 11:11 04/30/19 11:11 04/30/19 11:11 Palliative Performance Scale: 30 - Physical Exam Constitutional: cachectic, encephalitic, ill appearing HEENT: moist MMs, sclera anicteric Respiratory: clear to auscultation bilateral, no wheezing, unlabored breathing Cardiovascular: RRR Gastrointestinal: non-tender, no distention, positive bowel sounds, incontinent Genitourinary: gonzalez catheter Musculoskeletal: no edema, diffuse muscle atrophy Neurology: moves all 4 limbs Skin: cap refill <2 seconds, fragile Psychiatric: flat affect Deviation from normal: Oreinted to self - Problem List (1) Palliative care encounter Code(s): Z51.5 - ENCOUNTER FOR PALLIATIVE CARE Current Visit: Yes Status: Acute (2) Afib Code(s): I48.91 - UNSPECIFIED ATRIAL FIBRILLATION Current Visit: Yes Status : Acute (3) CHF (congestive heart failure) Code(s): I50.9 - HEART FAILURE, UNSPECIFIED Current Visit: Yes Status: Acute (4) DM2 (diabetes mellitus, type 2) Current Visit: Yes Status: Acute (5) Dementia Code(s): F03.90 - UNSPECIFIED DEMENTIA WITHOUT BEHAVIORAL DISTURBANCE Current Visit: Yes Status: Acute (6) Lower GI bleed Code(s): K92.2 - GASTROINTESTINAL HEMORRHAGE, UNSPECIFIED Current Visit: Yes Status: Acute (7) Physical deconditioning Code(s): R53.81 - OTHER MALAISE Current Visit: Yes Status: Acute - Plan/Recommendations Plan: Spoke with patient over the phone, daughter Joanne at bedside. Education with daughter in relation to resuscitation status, she was not clear on the fact that her father would not be intubated if needed. Discussed outcomes and disease trajectory. They will follow up with the [place] for OOHDNAR after discussing as a family. They wish to stay DNAR for this hospital stay. They do not have a MPOA for Joanne, however Mrs Nuñez is mildly confused at times. Joanne states that they all "collaborate in decision making." Discussed recent decline of her father, and for the family to think about what he "would want" if he could speak for himself. Reminded Joanne that the decisions they would make for Mr Nuñez were based on his wishes and they were just "his voice". Emotional support and therapeutic listening. [60] minutes spent on this encounter with >50% of the time in counseling and coordination of care. Thank you for this very appropriate consult.
[2019-04-30 15:31] VITALS: BP 110/70; TEMP 96.9
--- NOTE | 2019-04-30 18:41 | DIS ---
DATE OF ADMISSION: 04/27/2019 DATE OF DISCHARGE: 04/30/2019 ADMITTING ATTENDING: Dr. Shefali Benitez. DISCHARGE ATTENDING: Dr. Guero Figueroa. CONSULTS: Gastroenterology, Dr. Damaso Clark. PROCEDURES: None. PRIMARY DIAGNOSES: Macrocytic anemia, atrial fibrillation, dementia. SECONDARY DIAGNOSES: Type 2 diabetes, congestive heart failure, BPH. DISCHARGE MEDICATIONS: 1. Metformin 1000 mg b.i.d. 2. Zinc 220 daily. 3. Vitamin D3, 2000 units b.i.d. 4. Ascorbic acid 500 mg b.i.d. 5. Cyanocobalamin 1000 mcg daily. 6. Flomax 0.4 mg daily. 7. Thera-M caplet one tablet daily. 8. Multivitamin one tablet daily. 9. Melatonin 3 mg p.o. at bedtime. 10. Magnesium 400 mg daily. 11. Zestril 5 mg daily. 12. Furosemide 40 mg daily. 13. Pepcid 20 mg b.i.d. 14. Digoxin 0.125 mg daily. 15. Cymbalta 30 mg daily. 16. Calcium citrate 250 mg tablets, 500 mg b.i.d. 17. Casodex 50 mg daily. 18. Ecotrin 81 mg daily. 19. Carvedilol 12.5 mg b.i.d. 20. Lantus 12 units subcu daily. Discontinued medications; 1. Levemir 4 units subcu b.i.d. 2. Eliquis 5 mg p.o. b.i.d. HISTORY OF PRESENT ILLNESS AND HOSPITAL COURSE: An 89-year-old male with past medical history of atrial fibrillation, on Eliquis, was brought from the assisted for hematochezia. The patient reportedly developed new onset hematochezia at [facility]. He received 1 L of normal saline in the ED and was subsequently admitted for suspected active lower GI bleed. The patient was found to be anemic with a hemoglobin of 10.6. His Eliquis for his atrial fibrillation was held and GI was consulted. Discussion with the family resulted in medical power of tax associate attorney placing the patient as a do not resuscitate. GI spoke with family and discussed the fact that the patient would have to be revoked from DNR status prior to the procedure. They initially agreed with this and the patient resumes his colonoscopy prep. On the day of his planned colonoscopy, he was found to have inadequate prep and the procedure was canceled. Discussion again with the [facility] regarding the patient's risks and benefits of the procedure resulted in the family member denying further interventions to be taken as the patient's hemoglobin remained stable on the day of discharge at 9.9. Discussion with the family in the patient's presence regarding the risks and benefits of continued Eliquis for the patient's atrial fibrillation resulted in agreement to discontinue this medication due to continued risk of bleeding going forward. The patient was subsequently discharged back to the [facility]. DISCHARGE INSTRUCTIONS: 1. Location, [facility]. 2. Diet, diabetic. 3. Activity, as tolerated. 4. Follow up with PCP, Dr. Rodgers within 7 days. Job ID: [id number] MTDD
== END 2019-04-30 17:55 | DRG 394 ==
LOC: ERS 20:24 → 2NO 21:47
PROVIDERS: ADMIT Family Medicine; ATTEND Family Medicine
DX: K62.7 Radiation proctitis (principal); K92.1 Melena; E44.0 Moderate protein-calorie malnutrition; Z68.1 Body mass index [BMI] 19.9 or less, adult; I13.0 Hypertensive heart and chronic kidney disease with heart failure and stage 1 through stage 4 chronic kidney disease, or unspecified chronic kidney disease; I42.9 Cardiomyopathy, unspecified; D53.9 Nutritional anemia, unspecified; I48.91 Unspecified atrial fibrillation; F03.90 Unspecified dementia, unspecified severity, without behavioral disturbance, psychotic disturbance, mood disturbance, and anxiety; E11.9 Type 2 diabetes mellitus without complications; N40.0 Benign prostatic hyperplasia without lower urinary tract symptoms; Z66 Do not resuscitate; I50.9 Heart failure, unspecified; N18.3 Chronic kidney disease, stage 3 (moderate); E11.22 Type 2 diabetes mellitus with diabetic chronic kidney disease; Z85.46 Personal history of malignant neoplasm of prostate; Z51.5 Encounter for palliative care; R40.2132 Coma scale, eyes open, to sound, at arrival to emergency department; R40.2362 Coma scale, best motor response, obeys commands, at arrival to emergency department; R40.2252 Coma scale, best verbal response, oriented, at arrival to emergency department; K21.9 Gastro-esophageal reflux disease without esophagitis; G47.00 Insomnia, unspecified; L89.152 Pressure ulcer of sacral region, stage 2; Z79.01 Long term (current) use of anticoagulants
CPT/HCPCS: 36415; 36416; 51702; 80048; 80053; 81003; 81015; 82274; 82550; 85014; 85018; 85025; 85610; 85730; 96360; 96361; C9113; J1815; J3480

== ENCOUNTER 2019-05-01 08:17 | Inpatient (IN) | payer MEDICARE ==
--- NOTE | 2019-05-01 09:02 | RAD ---
SINGLE VIEW CHEST: Date: 05/01/2019 COMPARISON: 10/22/14. HISTORY: Low oxygen saturation and low blood pressure. FINDINGS: Single view of the chest shows a cardiomediastinal silhouette which is upper limits of normal in size . Atherosclerotic calcifications are seen in the aorta. There are small bilateral pleural effusions w ith adjacent atelectasis versus infiltrates. IMPRESSION: Bilateral pleural effusions with adjacent atelectasis versus infiltrates. POS: [facility]
[2019-05-01 09:11] LABS: #Eosinphils 0.1 thou/uL (0.0-0.7); #Lymphocytes 0.9 thou/uL (1.20-3.40); #Monocytes 1.3 thou/uL (0.11-0.59); #Neutrophils 11.5 thou/uL (1.40-6.50); %Basophils 0.2 % (0.0-1.0); %Eosinophils 0.4 % (0.0-10.0); %Lymphocytes 6.4 % (21.0-51.0); %Monocytes 9.2 % (0.0-10.0); %Neutrophils 83.8 % (42.0-75.0); Hemoglobin 11.6 g/dL (14.0-18.0); Mean Corpuscular HGB CONC 33.5 g/dL (32.0-36.0); Mean Corpuscular Hemoglobin 34.5 pg (27.0-31.0); Mean Platelet Volume 7.8 fL (7.4-10.4); Platelet Count 250 thou/uL (130-400); RBC Distribution Width 13.5 % (11.5-14.5); Red Blood Cell (RBC) Count 3.37 mill/uL (4.70-6.10); White Blood Cell (WBC) Count 13.7 thou/uL (4.8-10.8)
[2019-05-01 09:29] LABS: ALT (SGPT) 24 U/L (8-55); AST (SGOT) 22 U/L (5-34); Alkaline Phosphatase 96 U/L (40-110); Anion Gap 22 mmol/L (10-20); BUN (Urea Nitrogen) 24 mg/dL (8.4-25.7); Calc. Creatinine Clearance 0 mL/min (70-130); Calcium 8.2 mg/dL (7.8-10.44); Carbon Dioxide 20 mmol/L (23-31); Chloride 98 mmol/L (98-107); Estimated GFR-MDRD 61; Globulin 2.5 g/dL (2.4-3.5); Glucose 356 mg/dL (83-110); Lipase Less than 4 U/L (8-78); Potassium 4.4 mmol/L (3.5-5.1); Protein, Total 5.5 g/dL (5.8-8.1); Sodium 136 mmol/L (136-145)
[2019-05-01 09:39] LABS: CKMB 2.1 ng/mL (0-6.6)
[2019-05-01] MEDS ORDERED: Cefepime 2 GM VIAL ONE (09:42)
[2019-05-01] MEDS ORDERED: Vancomycin 1.5 GRAM/300 ML BAG 1.5 GM in Premix Bag 1 BAG IVPB SCH (10:00)
--- NOTE | 2019-05-01 10:10 | PDOC.FPRHP ---
- History of Present Illness Chief Complaint: Low blood pressure, low O2 Sat History of Present Illness: Pt is 89 year old male with a PMH of Dementia, CHF, recent history of right pleural effusion s/p thoracentesis about 2 weeks ago who was sent to [facility] from the [facility] for low O2 sat and low BP. He was recently discharged from [facility] on 04/30/2019 after admission for acute GI bleed. During that admission, he had a slight drop in hemoglobin and his eliquis was discontinued. He was seen by GI but procedure was not done during that admission. There have been no new episodes of GI bleeding, no fever, chills, chest pain, dyspnea, cough, n/v, diarrhea. ED Course: In the ED, He was found to have Afib with RVR at a rate of 105 on EKG. He had a white count of 13.7 and was found to be hypotensive and hypoxia at the [facility]. So he was started on Vancomycin, Cefepime, and Levaquin. He also received 2L of NS. - Allergies/Adverse Reactions Allergies Allergy/AdvReac Type Severity Reaction Status Date / Time doxycycline Allergy Verified 04/28/19 01:21 morphine Allergy Verified 04/28/19 01:21 - Home Medications Medication Instructions Recorded Confirmed Type Ascorbic Acid [Vitamin C] 500 mg PO BID 04/27/19 05/01/19 History Aspirin [Ecotrin Low Strength] 81 mg PO DAILY 04/27/19 05/01/19 History Bicalutamide [Casodex] 50 mg PO DAILY 04/27/19 05/01/19 History Calcium Citrate 500 mg PO BID 04/27/19 05/01/19 History Carvedilol 12.5 mg PO BID 04/27/19 05/01/19 History Cholecalciferol (Vitamin D3) 2,000 unit PO BID 04/27/19 05/01/19 History [Vitamin D3] Cyanocobalamin (Vitamin B-12) 1,000 mcg PO DAILY 04/27/19 05/01/19 History [Vitamin B-12] DULoxetine HCl [Cymbalta] 30 mg PO DAILY 04/27/19 05/01/19 History Digoxin [Lanoxin] 1 tab PO DAILY 04/27/19 05/01/19 History Famotidine [Pepcid] 20 mg PO BID 04/27/19 05/01/19 History Furosemide 1 tab PO DAILY 04/27/19 05/01/19 History Lisinopril [Zestril] 1 tab PO DAILY 04/27/19 05/01/19 History Magnesium Oxide [Magnesium] 400 mg PO DAILY 04/27/19 05/01/19 History Melatonin 3 mg PO HS 04/27/19 05/01/19 History Multivit,Calc,Mins/Iron/Folic 1 tablet PO DAILY 04/27/19 05/01/19 History [Thera-M Caplet] Saw/Py/Net/Pumpk/Beta/Ly/Zn/Cu 1 each PO DAILY 04/27/19 05/01/19 History [Prostate Control Softgel] Tamsulosin HCl [Flomax] 0.4 mg PO DAILY 04/27/19 05/01/19 History Zinc Sulfate [Zinc-220] 220 mg PO DAILY 04/27/19 05/01/19 History metFORMIN [Glucophage] 1,000 mg PO BID-WM 04/27/19 05/01/19 History Insulin Glargine,Hum.Rec.Anlog 12 unit SC DAILY #1 pen 04/30/19 05/01/19 Rx [Lantus Solostar] - History PMHx: DM2, CHF, A fib-recently discontinued eliquis, Dementia, Recent hx of right pleural effusion PSHx: Thoracentesis FHx: noncontributory Social: denies smoking, alcohol, drug use - Review of Systems General: denies: fever/chills, weight/appetite/sleep changes Eyes: denies: eye pain, vision changes ENT: denies: nasal congestion, rhinorrhea Respiratory: denies: cough, congestion, shortness of breath Cardiovascular: denies: chest pain, palpitation Gastrointestinal: denies: nausea, vomiting, diarrhea Genitourinary: denies: dysuria, polyuria Skin: denies: rashes, lesions Musculoskeletal: denies: pain, tenderness Neurological: denies: numbness, syncope - Vital signs BP: 117/71 HR: 100 RR: 19 Tmax: 98.3 Pox: 100% on RA Wt: 68 kg - Physical Exam Constitutional: NAD, awake, alert and oriented HEENT: normocephalic and atraumatic, PERRLA, EOMI, MMM Neck: supple, FROM, no JVD Heart: normal S1/S2, no murmurs/rubs/gallops -Heart: irregularly irregular rhythm, tachycardic Lungs: CTAB, no respiratory distress, good air movement, no rales/rhonchi Abdomen: soft, non-tender Musculoskeletal: normal structure, normal tone Neurological: no focal deficit, CN II-XII intact Skin: no rash/lesions, capillary refill <2 seconds Heme/Lymphatic: no unusual bruising or bleeding, no purpura, no petechia -Psychiatric: A&O X1 FMR H&P: Results - Labs Result Diagrams: 05/01/19 08:47 05/01/19 08:47 Lab results: WBC 13.7 thou/uL (4.8-10.8) H 05/01/19 08:47 Hgb 11.6 g/dL (14.0-18.0) L 05/01/19 08:47 Hct 34.7 % (42.0-52.0) L 05/01/19 08:47 MCV 103.0 fL (78.0-98.0) H 05/01/19 08:47 Plt Count 250 thou/uL (130-400) 05/01/19 08:47 Neutrophils % 83.8 % (42.0-75.0) H 05/01/19 08:47 Sodium 136 mmol/L (136-145) 05/01/19 08:47 Potassium 4.4 mmol/L (3.5-5.1) 05/01/19 08:47 Chloride 98 mmol/L (98-107) 05/01/19 08:47 Carbon Dioxide 20 mmol/L (23-31) L 05/01/19 08:47 BUN 24 mg/dL (8.4-25.7) 05/01/19 08:47 Creatinine 1.13 mg/dL (0.7-1.3) 05/01/19 08:47 Glucose 356 mg/dL (83-110) H 05/01/19 08:47 Lactic Acid 2.4 mmol/L (0.5-2.2) H 05/01/19 08:47 Calcium 8.2 mg/dL (7.8-10.44) 05/01/19 08:47 Total Bilirubin 1.0 mg/dL (0.2-1.2) 05/01/19 08:47 AST 22 U/L (5-34) 05/01/19 08:47 ALT 24 U/L (8-55) 05/01/19 08:47 Alkaline Phosphatase 96 U/L (40-110) 05/01/19 08:47 CK-MB (CK-2) 2.1 ng/mL (0-6.6) 05/01/19 08:46 Serum Total Protein 5.5 g/dL (5.8-8.1) L 05/01/19 08:47 Albumin 3.0 g/dL (3.4-4.8) L 05/01/19 08:47 Lipase Less than 4 U/L (8-78) L 05/01/19 08:47 - EKG Interpretation EKG: EKG shows Afibe with RVR FMR H&P: A/P - Problem List (1) Pneumonia Current Visit: Yes Status: Acute Code(s): J18.9 - PNEUMONIA, UNSPECIFIED ORGANISM (2) Sepsis associated hypotension Current Visit: Yes Status: Acute Code(s): A41.9 - SEPSIS, UNSPECIFIED ORGANISM; I95.9 - HYPOTENSION, UNSPECIFIED (3) Afib Current Visit: No Status: Acute Code(s): I48.91 - UNSPECIFIED ATRIAL FIBRILLATION (4) CHF (congestive heart failure) Current Visit: No Status: Acute Code(s): I50.9 - HEART FAILURE, UNSPECIFIED (5) DM2 (diabetes mellitus, type 2) Current Visit: No Status: Acute (6) Dementia Current Visit: No Status: Acute Code(s): F03.90 - UNSPECIFIED DEMENTIA WITHOUT BEHAVIORAL DISTURBANCE (7) Lower GI bleed Current Visit: No Status: Acute Code(s): K92.2 - GASTROINTESTINAL HEMORRHAGE , UNSPECIFIED (8) Physical deconditioning Current Visit: No Status: Acute Code(s): R53.81 - OTHER MALAISE - Plan Pt is 89 year old male with a PMH of Dementia, CHF, recent history of right pleural effusion s/p thoracentesis about 2 weeks ago who was [facility] and low BP. 1. Suspected PNA with Sepsis Associated with Hypotension Initial BP: 92/61, Tachy to 124, with WBC: 13.7 * Cxray: Atelectasis vs. PNA * In ED received * 2L NS * Vanc, Cefepime, Levaquin * Will continue on NS @ 100 * Will continue on Levaquin * Will await BCx, UCx, UA, & trend CBC * Currently on room air without tachypnea and satting 100% * Palliative Care Consulted * PT/OT Consulted 2. Recent GI Bleed with Macrocytic Anemia H/H 11.6/34.7 * Stopped patient's Eliquis at this time * No procedure, since Hgb remained stable 3. Dementia Daughter states pt is A&Ox1 at baseline * Speech Consult * NPO currently 4. CHF Continue home meds 5. DM2 Continue home meds * ACHS * SSI 6. BPH Pulled out gonzalez during last admission * Will await UA 7. Hx of Prostate Cancer Continue home chemo regimen Code: DNAR according to daughter, with oupt DNR getting set up by Diet: NPO DVTppx: SCDs due to GI Bleed PCP: DESMOND Garduno) Dispo: Tele inpt for PNA and sepsis, LOS > 48H. Will admit and treat for PNA and sepsis until cultures result. FMR H&P: Upper Level - Plan Date/Time: 05/01/19 1009 I, Gustavo Gutiérrez MD, have evaluated this patient and agree with findings/ plan as outlined by technology risk intern resident. Pertinent changes/additions are listed here. Gustavo Gutiérrez is an 89 year old M with a PMH of A fib-recently d/c'd Eliquis , CHF, DM2, CKD3 who was sent to [facility] ER from [facility] due to low O2 sat and low BP in the 90s systolic. He was discharged from [facility] on 04/30/2019 after admission for acute GI bleed. During that admission, his Hg dropped from 10.7 to 9.6 and then stabilized. After discussion with his family of risks of bleeding with Eliquis, it was decided to discontinue Eliquis and no further bleeding was noted. He did not have any GI procedure done. GI evaluated patient during admission. In the ED today, patient met sepsis criteria with tachycardia, hypotension and elevated WBC count. CXR showed atelectasis vs pneumonia. Patient was started on vanc, cefepime, and levaquin and 2 L NS. Denies any fever, GI bleed since d/c, cough, congestion, dypsnea, n /v, diarrhea, abdominal pain, LE edema. Vitals on admission were HR 105, RR 18, O2 sat 100% on RA, T 97.6, BP 112/66. Labs were WBC 13.7, Hg 11.6 (improvement since d/c), Cr 1.13, Procal 0.1, Lactic acid 2.4 trended down to 1.7. Admitting patient to inpatient tele for sepsis 2/2 possible pneumonia. BP has improved with IVFs, tacyhcardia improving. Will continue levaquin for pna and ordered blood cultures. Continue mIVFs. Trend cardiac enzymes. Home insulin and SSI with achs accuchecks and hypoglycemia protocol. Please see technology risk intern note above for full H&P, which I have reviewed and agree with. Code Status: FULL CODE Addendum - Attending - Attending Attestation Date/Time: 05/01/19 8427 I personally evaluated the patient and discussed the management with Dr. Soni. I agree with the History, Examination, Assessment and Plan documented above with any addition or exceptions noted below. 89 yo WM PMH CHF, recent hospitalization for HF exacerbation and GI bleed. presented from [facility] after being found to be hypoxic. In ER tachycardic with elevated WBC and low BP. Given IV fluids, vanc, cefepime, and levquin. BP improving with fluids. CXR showed bibasilar infiltrate vs atelectasis. Admit for sepsis 2/2 possible HAP. Check procal and continue abx. check BNP and trend trop. Discussed goals of care with daughter but will need to revisit. Inpatient , tele, >2 midnights.
[2019-05-01] MEDS ORDERED: Acetaminophen 325 MG TAB PO PRN (11:25)
[2019-05-01] MEDS ORDERED: Ondansetron PF 4 MG/2 ML Vial IVP PRN (11:25)
[2019-05-01] MEDS ORDERED: Dextrose 5% in Water 1,000 ML IV PRN (11:25)
[2019-05-01] MEDS ORDERED: HumaLOG 300 UNITS/3 ML VIAL SC PRN (11:25)
[2019-05-01] MEDS ORDERED: Dextrose 50% Abboject 50 ML SYRINGE SLOW IVP PRN (11:25)
[2019-05-01] MEDS ORDERED: Ondansetron ODT 4 MG TAB PO PRN (11:25)
[2019-05-01] MEDS ORDERED: Acetaminophen 650 MG Suppository PR PRN (11:25)
[2019-05-01 11:54] LABS: Lactic Acid 1.7 mmol/L (0.5-2.2)
[2019-05-01 12:54] LABS: Bacteria/HPF 4+ HPF (None Seen); Bilirubin Negative (Negative); Blood, Urine 2+ (Negative); Clarity Turbid (Clear); Glucose, Urine (Dipstick) 500 mg/dL (Negative); Leukocyte 500 Leu/uL (Negative); Nitrite Negative (Negative); Protein, Urine (Dipstick) Negative (Neg-Trace); Squamous Epithelial None Seen HPF (0-3); Urobilinogen Normal mg/dL (Less than 2); WBC/HPF 21-50 HPF (0-3)
[2019-05-01 15:03] LABS: Troponin I 0.021 ng/mL (< 0.028)
[2019-05-01] MEDS: Sodium Chloride 0.9% 1,000 ML IV SCH (15:06)
--- NOTE | 2019-05-01 15:33 | PDOC.PALCO ---
Palliative Care Consult - Consult Details Requesting Physician: Dr Soni Reason for Consult: goals of care, advance directives assistance, family support Family Members Present: Daughter - Pertinent HPI 89 year old male who was discharged less than 24 hours prior to the [place] from [facility] for GI bleed. He was found to have low blood pressure and poor o2 saturation and EMS transferred patient back to [facility] emergency room for evaluation. He wsa found to have Afib with RVR and elevated white count with hypotension and hypoxia. Admitted to [facility] for medical management. Dr Soni confirmed DNAR with patient . - Pertinent PMH DM II, CHF, Afib / eliquis not reinstated as risk great for GI bleeding unknown location, Dementia, right pleural effusion - Social History Smoking Status: Never smoker Smoking: no tobacco exposure Alcohol Use: none Drug Use History: none (Recent transition to skilled nursing) Living Situation: - Medications MAR Reviewed: Yes - Allergies Allergies/Adverse Reactions: Allergies Allergy/AdvReac Type Severity Reaction Status Date / Time doxycycline Allergy Verified 05/01/19 14:06 morphine Allergy Verified 05/01/19 14:06 - Subjective Awake, alert, verbal but word salad. Appears in no distress as he is smiling. Weakness. Daughter, Joanne,at bedside. 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 - Problem List (1) Pneumonia Code(s): J18.9 - PNEUMONIA, UNSPECIFIED ORGANISM Current Visit: Yes Status: Acute (2) Sepsis associated hypotension Code(s): A41.9 - SEPSIS, UNSPECIFIED ORGANISM; I95.9 - HYPOTENSION, UNSPECIFIED Current Visit: Yes Status: Acute (3) Afib Code(s): I48.91 - UNSPECIFIED ATRIAL FIBRILLATION Current Visit: No Status: Acute (4) Dementia Code(s): F03.90 - UNSPECIFIED DEMENTIA WITHOUT BEHAVIORAL DISTURBANCE Current Visit: No Status: Acute (5) Palliative care encounter Code(s): Z51.5 - ENCOUNTER FOR PALLIATIVE CARE Current Visit: No Status: Acute (6) Physical deconditioning Code(s): R53.81 - OTHER MALAISE Current Visit: No Status: Acute - Plan/Recommendations Plan: Assessed patient, revisited with patient Daughter. Continued education in relation to disease progression of dementia and suspected dysphagia. Discussed goal of care, Joanne mentioned that when they returned yesterday to the [place] with her dad they were asked if they had "thoughts on hospice"? Therapeutic listening in relation to patient and recent decline paired with multiple morbidities. Joanne states her sisters are not understanding the decline, encouraged her to "video call her siblings with her dad so they can communicate and see him" Discussed that to complete OOHDNAR Mrs. Gutiérrez will need to sign in person. Coordinated for Joanne to drive her mother through the drive tomorrow and we will bring document for her to sign, then place on patient Chart for Dr Soni to sign. Also offered at that time for Ms Gutiérrez to ask any questions she may have. [60] minutes spent on this encounter with >50% of the time in counseling and coordination of care. Thank you for this very appropriate consult.
[2019-05-01 15:51] VITALS: BMI 21.2
[2019-05-01] MEDS ORDERED: Metoprolol Tartrate 5 MG/5 ML VIAL IVP SCH (16:00)
[2019-05-01] MEDS ORDERED: HumaLOG 300 UNITS/3 ML VIAL SC SCH (17:15)
[2019-05-01] MEDS: metFORMIN 500 MG TAB PO SCH (17:29)
[2019-05-01] MEDS ORDERED: Famotidine 20 MG TAB PO SCH (21:00)
[2019-05-01] MEDS: Ascorbic Acid 500 mg Chewable Tablet PO SCH (22:39)
[2019-05-01] MEDS: Calcium Citrate 950 MG TAB PO SCH (22:39)
[2019-05-01] MEDS: Carvedilol 6.25 MG TAB PO SCH (22:40)
[2019-05-01] MEDS: Melatonin 3 MG TAB PO PRN (22:40)
[2019-05-01] MEDS: Famotidine 20 MG TAB PO SCH (22:40)
[2019-05-02] MEDS: Sodium Chloride 0.9% 1,000 ML IV SCH ×2 (01:23→09:31)
[2019-05-02 04:30] LABS: #Eosinphils 0.1 thou/uL (0.0-0.7); #Lymphocytes 0.5 thou/uL (1.20-3.40); #Neutrophils 7.7 thou/uL (1.40-6.50); %Basophils 0.2 % (0.0-1.0); %Eosinophils 0.8 % (0.0-10.0); %Lymphocytes 4.9 % (21.0-51.0); %Neutrophils 83.1 % (42.0-75.0); Hemoglobin 9.3 g/dL (14.0-18.0); Mean Corpuscular HGB CONC 32.7 g/dL (32.0-36.0); Mean Corpuscular Hemoglobin 33.3 pg (27.0-31.0); Mean Platelet Volume 7.5 fL (7.4-10.4); Platelet Count 215 thou/uL (130-400); RBC Distribution Width 13.6 % (11.5-14.5); White Blood Cell (WBC) Count 9.3 thou/uL (4.8-10.8)
[2019-05-02 04:50] LABS: ALT (SGPT) 19 U/L (8-55); AST (SGOT) 17 U/L (5-34); Albumin 2.5 g/dL (3.4-4.8); Alkaline Phosphatase 75 U/L (40-110); Anion Gap 15 mmol/L (10-20); BUN (Urea Nitrogen) 21 mg/dL (8.4-25.7); Bilirubin, Total 0.6 mg/dL (0.2-1.2); Calc. Creatinine Clearance 53 mL/min (70-130); Calcium 7.2 mg/dL (7.8-10.44); Carbon Dioxide 22 mmol/L (23-31); Chloride 106 mmol/L (98-107); Estimated GFR-MDRD 74; Globulin 2.1 g/dL (2.4-3.5); Glucose 188 mg/dL (83-110); Potassium 3.3 mmol/L (3.5-5.1); Protein, Total 4.6 g/dL (5.8-8.1); Sodium 140 mmol/L (136-145)
--- NOTE | 2019-05-02 06:04 | PDOC.FM ---
- Subjective Subjective: He has no complaints this morning. He says he is not hurting anywhere. - Objective MAR Reviewed: Yes Vital Signs & Weight: Vital Signs (12 hours) Temp Pulse Resp BP BP Pulse Ox 05/02/19 03:14 97.7 F 80 18 111/53 L 97 05/01/19 22:40 135/63 05/01/19 19:55 98.0 F 76 18 135/63 97 05/01/19 19:45 97 05/01/19 18:03 86 113/53 L Weight Weight 71.078 kg I&O: 04/30/19 05/01/19 05/02/19 06:59 06:59 06:59 Intake Total 595 Balance 595 Result Diagrams: 05/02/19 04:01 05/02/19 04:01 EKG Reviewed by me: Yes (Afib in 90s) Phys Exam - Physical Examination Constitutional: NAD HEENT: moist MMs, sclera anicteric, oral pharynx no lesions Neck: no nodes, supple Respiratory: no wheezing, no rales, no rhonchi, clear to auscultation bilateral Cardiovascular: no significant murmur Irregular rate, regular rhythm Gastrointestinal: soft, non-tender, positive bowel sounds Musculoskeletal: no edema, pulses present Neurological: moves all 4 limbs Lymphatic: no nodes Psychiatric: normal affect Skin: no rash, normal turgor Dx/Plan (1) Pneumonia Code(s): J18.9 - PNEUMONIA, UNSPECIFIED ORGANISM Status: Acute (2) Sepsis associated hypotension Code(s): A41.9 - SEPSIS, UNSPECIFIED ORGANISM; I95.9 - HYPOTENSION, UNSPECIFIED Status: Acute (3) Afib Code(s): I48.91 - UNSPECIFIED ATRIAL FIBRILLATION Status: Acute (4) CHF (congestive heart failure) Code(s): I50.9 - HEART FAILURE, UNSPECIFIED Status: Acute (5) DM2 (diabetes mellitus, type 2) Status: Acute (6) Dementia Code(s): F03.90 - UNSPECIFIED DEMENTIA WITHOUT BEHAVIORAL DISTURBANCE Status: Acute (7) Lower GI bleed Code(s): K92.2 - GASTROINTESTINAL HEMORRHAGE, UNSPECIFIED Status: Acute (8) Physical deconditioning Code(s): R53.81 - OTHER MALAISE Status: Acute - Plan Plan: Pt is 89 year old male with a PMH of Dementia, CHF, recent history of right pleural effusion s/p thoracentesis about 2 weeks ago who was sent to [facility] from the [facility] for low O2 sat and low BP. 1. Suspected PNA with Sepsis Associated with Hypotension Initial BP: 92/61, Tachy to 124, with WBC: 13.7 Today BP: 11/53, No longer tachy, WBC: 9.3 * Cxray: Atelectasis vs. PNA * In ED received * 2L NS * Vanc, Cefepime, Levaquin * Will continue on NS @ 100- D/c 05/01 * Will continue on Levaquin * Procal: 0.10- Negative * UA: LE-500, WBC- 21-50, [place]- 4+ * Likely Source * Cultures: * BCx: NGTD * UCx: pending * Currently on room air without tachypnea and satting 100% * Palliative Care Consulted, Spoke with daughter. * Need to sign Out of Hospital DNR * PT/OT Consulted 2. Recent GI Bleed with Macrocytic Anemia H/H 11.6/34.7 > 9.3/28.4 * Stopped patient's Eliquis at this time * No procedure, since Hgb remained stable * Likely dilutional 3. Dementia Daughter states pt is A&Ox1 at baseline * Speech Consult, awaiting eval 4. CHF Continue home meds 5. DM2 Continue home meds * ACHS * SSI 6. BPH Pulled out gonzalez during last admission * Will await UA 7. Hx of Prostate Cancer Continue home chemo regimen 8. Hypokalemia K: 3.3 * Will check Mag & Phos, replace as needed * Will replace K Code: DNAR according to daughter, with oupt DNR getting set up by Diet: NPO DVTppx: SCDs due to GI Bleed PCP: DESMOND Garduno) Dispo: Tele inpt for PNA and sepsis, LOS > 48H. Awaiting Culture Results. Will continue to treat with Levaquin. Addendum - Attending - Attending Attestation Date/Time: 05/02/19 7457 I personally evaluated the patient and discussed the management with Dr. Soni I agree with the History, Examination, Assessment and Plan documented above with any addition or exceptions noted below. Mentation improved, UCx pending, will move to medical. Likely d/c tomorrow. Will continue to discuss advanced directives with family.
[2019-05-02 06:28] LABS: Magnesium 1.9 mg/dL (1.6-2.6)
[2019-05-02 06:33] LABS: Phosphorus 1.9 mg/dL (2.3-4.7)
[2019-05-02] MEDS ORDERED: Potassium Chloride 20 MEQ TAB PO SCH (07:30)
[2019-05-02] MEDS ORDERED: PHOS-NAK 1 PKT PACK PO SCH (08:00)
[2019-05-02] MEDS: metFORMIN 500 MG TAB PO SCH ×2 (08:36→17:58)
[2019-05-02] MEDS: Bicalutamide 50 MG TAB PO SCH (08:37)
[2019-05-02] MEDS: Calcium Citrate 950 MG TAB PO SCH ×2 (08:37→21:58)
[2019-05-02] MEDS: Aspirin 81 mg Enteric Coated Tablet PO SCH (08:37)
[2019-05-02] MEDS: Cyanocobalamin (Vitamin B-12) 1,000 MCG TAB PO SCH (08:38)
[2019-05-02] MEDS: Carvedilol 6.25 MG TAB PO SCH ×2 (08:38→21:59)
[2019-05-02] MEDS: DULoxetine 30 MG CAP PO SCH (08:38)
[2019-05-02] MEDS: Digoxin 0.125 MG TAB PO SCH (08:38)
[2019-05-02] MEDS: Famotidine 20 MG TAB PO SCH ×2 (08:39→21:59)
[2019-05-02] MEDS: Lisinopril 5 MG TAB PO SCH (08:39)
[2019-05-02] MEDS: Furosemide 40 MG TAB PO SCH (08:39)
[2019-05-02] MEDS: Insulin Glargine 10 UNITS in Pre-Filled Syringe 1 EACH SC SCH (08:39)
[2019-05-02] MEDS: Magnesium Oxide 400 MG TAB PO SCH (08:40)
[2019-05-02] MEDS: PHOS-NAK 1 PKT PACK PO SCH ×3 (08:41→21:59)
[2019-05-02] MEDS: Multivitamin W/ Minerals 1 TAB PO SCH (08:41)
[2019-05-02] MEDS: Zinc Sulfate 220 MG CAP PO SCH (08:41)
[2019-05-02] MEDS: Tamsulosin HCl 0.4 MG CAP PO SCH (08:41)
[2019-05-02] MEDS: Ascorbic Acid 500 mg Chewable Tablet PO SCH ×2 (08:42→21:58)
[2019-05-02] MEDS ORDERED: [UNRECOGNIZED DRUG - OTHER] PO SCH (09:00)
[2019-05-02] MEDS ORDERED: Prevnar 13-Val Conj/PF 0.5 ML SYRINGE IM ONE (09:00)
[2019-05-02] MEDS ORDERED: Non-Formulary Item 1 EACH (Insulin Glargine,Hum.Rec.Anlog [Lantus Solostar] 12 UNIT) SC SCH (09:00)
[2019-05-02] MEDS: HumaLOG 300 UNITS/3 ML VIAL SC PRN ×2 (12:02→17:59)
--- NOTE | 2019-05-02 14:51 | PDOC.PALPN ---
Palliative Progress Note - Subjective Pleasantly confused. Denies complaints, potentially unreliable source for full ROS - Objective Vital Signs: Vital Signs - Most Recent Temp Pulse Resp BP Pulse Ox 97.7 F 81 16 144/80 H 98 05/02/19 11:39 05/02/19 11:39 05/02/19 11:39 05/02/19 11:39 05/02/19 11:39 - Physical Exam Constitutional: cachectic, ill appearing HEENT: moist MMs, sclera anicteric Respiratory: unlabored breathing Cardiovascular: irregular Gastrointestinal: soft, non-tender, no distention Musculoskeletal: diffuse muscle atrophy Neurology: moves all 4 limbs Skin: cap refill <2 seconds, no lesions Deviation from normal: Pallor Deviation from normal: Alert and oriented to self - Assessment (1) Pneumonia Code(s): J18.9 - PNEUMONIA, UNSPECIFIED ORGANISM Current Visit: Yes Status: Acute (2) Sepsis associated hypotension Code(s): A41.9 - SEPSIS, UNSPECIFIED ORGANISM; I95.9 - HYPOTENSION, UNSPECIFIED Current Visit: Yes Status: Acute (3) Afib Code(s): I48.91 - UNSPECIFIED ATRIAL FIBRILLATION Current Visit: No Status: Acute (4) Dementia Code(s): F03.90 - UNSPECIFIED DEMENTIA WITHOUT BEHAVIORAL DISTURBANCE Current Visit: No Status: Acute (5) Palliative care encounter Code(s): Z51.5 - ENCOUNTER FOR PALLIATIVE CARE Current Visit: No Status: Acute (6) Physical deconditioning Code(s): R53.81 - OTHER MALAISE Current Visit: No Status: Acute - Plan Plan: Again discussed OOHDNAR with patient daughter Joanne, and his . The states that Mr Gutiérrez would not desire life sustaining measures if required secondary to disease progression. Joanne drove her mother to the hospital and she was met in the drive to complete OOHDNAR secondary to COVID [address] Soni the Out of Hospital Do Not Attempt Resuscitation is on the chart for signature. [40] minutes spent on this encounter with >50% of the time in counseling and coordination of care. - ROS Non Response: due to mental status Constitutional: alert, weakness
[2019-05-03] MEDS: Melatonin 3 MG TAB PO PRN (00:25)
[2019-05-03 04:51] LABS: Anion Gap 16 mmol/L (10-20); BUN (Urea Nitrogen) 18 mg/dL (8.4-25.7); Calc. Creatinine Clearance 57 mL/min (70-130); Calcium 7.4 mg/dL (7.8-10.44); Carbon Dioxide 21 mmol/L (23-31); Chloride 105 mmol/L (98-107); Estimated GFR-MDRD 80; Glucose 230 mg/dL (83-110); Phosphorus 1.3 mg/dL (2.3-4.7); Potassium 3.8 mmol/L (3.5-5.1); Sodium 138 mmol/L (136-145)
[2019-05-03] MEDS ORDERED: PHOS-NAK 1 PKT PACK PO SCH ×2 (05:45→15:00)
--- NOTE | 2019-05-03 06:37 | PDOC.FM ---
- Subjective Subjective: He was very upset last night. He was pulling off his telemetry and out his IV. He had a sitter come to sit with him last night. He has been eating well and has had normal bowel movements. - Objective MAR Reviewed: Yes Vital Signs & Weight: Vital Signs (12 hours) Temp Pulse Resp BP BP Pulse Ox 05/03/19 04:00 97.4 F L 75 16 121/57 L 98 05/02/19 21:59 135/63 05/02/19 21:50 100 05/02/19 19:54 97.2 F L 88 18 113/55 L 100 Weight Admit Weight 71.078 kg Weight 71.078 kg I&O: 05/01/19 05/02/19 05/03/19 06:59 06:59 06:59 Intake Total 1835 850 Balance 1835 850 Result Diagrams: 05/03/19 08:53 05/03/19 04:10 EKG Reviewed by me: Yes (Afib 80-100s) Phys Exam - Physical Examination Constitutional: NAD HEENT: moist MMs, oral pharynx no lesions Neck: supple, full ROM Respiratory: no wheezing, no rales, no rhonchi, clear to auscultation bilateral Cardiovascular: RRR, no significant murmur, no rub Gastrointestinal: soft, non-tender, positive bowel sounds Musculoskeletal: no edema, pulses present Neurological: moves all 4 limbs Lymphatic: no nodes Deviation from normal: A&Ox1 Skin: no rash, normal turgor Dx/Plan (1) Pneumonia Code(s): J18.9 - PNEUMONIA, UNSPECIFIED ORGANISM Status: Acute (2) Sepsis associated hypotension Code(s): A41.9 - SEPSIS, UNSPECIFIED ORGANISM; I95.9 - HYPOTENSION, UNSPECIFIED Status: Acute (3) Afib Code(s): I48.91 - UNSPECIFIED ATRIAL FIBRILLATION Status: Acute (4) CHF (congestive heart failure) Code(s): I50.9 - HEART FAILURE, UNSPECIFIED Status: Acute (5) DM2 (diabetes mellitus, type 2) Status: Acute (6) Dementia Code(s): F03.90 - UNSPECIFIED DEMENTIA WITHOUT BEHAVIORAL DISTURBANCE Status: Acute (7) Lower GI bleed Code(s): K92.2 - GASTROINTESTINAL HEMORRHAGE, UNSPECIFIED Status: Acute (8) Physical deconditioning Code(s): R53.81 - OTHER MALAISE Status: Acute - Plan Plan: Pt is 89 year old male with a PMH of Dementia, CHF, recent history of right pleural effusion s/p thoracentesis about 2 weeks ago who was sent to [facility] from the [facility] for low O2 sat and low BP. 1. Suspected PNA with Sepsis Associated with Hypotension Initial BP: 92/61, Tachy to 124, with WBC: 13.7 Today BP: 11/53, No longer tachy, WBC: 9.3 * Cxray: Atelectasis vs. PNA * In ED received * 2L NS * Vanc, Cefepime, Levaquin * Will continue on NS @ 100- D/c 05/01 * Will continue on Levaquin * Procal: 0.10- Negative * UA: LE-500, WBC- 21-50, [place]- 4+ * Likely Source * Cultures: * BCx: NGTD * UCx: alpha-hemolytic streptococus > 100K CFU, will await final results with susceptibilities. * Currently on room air without tachypnea and satting 100% * Palliative Care Consulted, Spoke with daughter. * PT/OT Consulted 2. Recent GI Bleed with Macrocytic Anemia H/H 11.6/34.7 > 9.3/28.4 * Stopped patient's Eliquis at this time * No procedure, since Hgb remained stable * Likely dilutional 3. Dementia Daughter states pt is A&Ox1 at baseline * Speech Consult, awaiting eval 4. CHF Continue home meds 5. DM2 Continue home meds * ACHS * SSI 6. BPH Pulled out gonzalez during last admission * Will await UA 7. Hx of Prostate Cancer Continue home chemo regimen 8. Hypokalemia- Resolved K: 3.3 > 3.8 * Will check Mag & Phos, replace as needed * Will replace K 9. Protein Malnutrition TP: 4.6, Alb: 2.5 * Consulted dietitian: Recommend Sugar Free diet shakes TID Code: DNAR according to daughter, with oupt DNR getting set up by Diet: NPO DVTppx: SCDs due to GI Bleed PCP: DESMOND Garduno) Dispo: Tele inpt for PNA and sepsis, LOS > 48H. Awaiting Final Culture Results and sensitivities Addendum - Attending - Attending Attestation Date/Time: 05/03/19 9664 I personally evaluated the patient and discussed the management with Dr. Soni I agree with the History, Examination, Assessment and Plan documented above with any addition or exceptions noted below. UCx showed alpha hemolytic strep. will f/u sensitivities then switch to PO abx. OOH DNR signed yesterday. Phos still low despite repletion. Give moderate to severe baseline protein calorie malnutrition, he may have a component of refeeding syndrome causing his hypophosphatemia. Will need to closely monitor at ID. Likely d/c later today. Will call family and update.
[2019-05-03 09:11] LABS: Hemoglobin 10.3 g/dL (14.0-18.0); Platelet Count 211 thou/uL (130-400)
[2019-05-03] MEDS: Magnesium Oxide 400 MG TAB PO SCH (09:46)
[2019-05-03] MEDS: Digoxin 0.125 MG TAB PO SCH (09:46)
[2019-05-03] MEDS: DULoxetine 30 MG CAP PO SCH (09:46)
[2019-05-03] MEDS: Furosemide 40 MG TAB PO SCH (09:46)
[2019-05-03] MEDS: Tamsulosin HCl 0.4 MG CAP PO SCH (09:47)
[2019-05-03] MEDS: Famotidine 20 MG TAB PO SCH (09:47)
[2019-05-03] MEDS: Carvedilol 6.25 MG TAB PO SCH (09:47)
[2019-05-03] MEDS: Lisinopril 5 MG TAB PO SCH (09:47)
[2019-05-03] MEDS: Zinc Sulfate 220 MG CAP PO SCH (09:47)
[2019-05-03] MEDS: metFORMIN 500 MG TAB PO SCH ×2 (09:47→17:07)
[2019-05-03] MEDS: Multivitamin W/ Minerals 1 TAB PO SCH (09:47)
[2019-05-03] MEDS: Aspirin 81 mg Enteric Coated Tablet PO SCH (09:48)
[2019-05-03] MEDS: Bicalutamide 50 MG TAB PO SCH (09:48)
[2019-05-03] MEDS: Calcium Citrate 950 MG TAB PO SCH (09:48)
[2019-05-03] MEDS: Ascorbic Acid 500 mg Chewable Tablet PO SCH (09:48)
[2019-05-03] MEDS: Cyanocobalamin (Vitamin B-12) 1,000 MCG TAB PO SCH (09:48)
[2019-05-03] MEDS: Insulin Glargine 10 UNITS in Pre-Filled Syringe 1 EACH SC SCH (09:49)
[2019-05-03] MEDS: HumaLOG 300 UNITS/3 ML VIAL SC PRN (10:51)
--- NOTE | 2019-05-03 11:52 | PQF ---
CLINICAL DOCUMENTATION IMPROVEMENT CLARIFICATION FORM: ICD-10 Updated PLEASE DO AN ADDENDUM TO THE PROGRESS NOTE WITH ANY DOCUMENTATION UPDATES OR ADDITIONS AND CARRY THROUGH TO DC SUMMARY. THANK YOU. DATE: 05/03/19 ATTN: DR. NI Please exercise your independent, professional judgment in responding to the clarification form. Clinical indicators are provided on the bottom of this form for your review Please check appropriate box(s): HEART FAILURE: A. ACUITY [ ] Acute [ ] Acute on Chronic [ x ] Chronic B. TYPE [ ] Systolic / HFrEF [ ] Diastolic / HFpEF [ ] Combined Systolic / Diastolic [ ] Hypertensive Heart and Kidney disease [ ] Hypertensive Heart Disease [ ] Hypertensive Kidney Disease [ ] Other diagnosis [ x ] Unable to determine In addition, please specify: Present on Admission (POA): [ x ] Yes [ ] No [ ] Unable to determine For continuity of documentation, please document condition throughout progress notes and discharge summary. Thank You. CLINICAL INDICATORS - SIGNS / SYMPTOMS / LABS / RESULTS AND LOCATION IN EMR H&P: "CHF, CURRENT VISIT: NO" PROGRESS NOTE 05/01: "CHF, ACUTE" BNP 04/30: 429.8 RISKS: AFIB (ER NOTE) HTN (ER NOTE) CARDIOMYOPATHY (ER NOTE) CKD STAGE 3 (ER NOTE) TREATMENT: COREG (04/30-PRESENT) PO LASIX (05/01-PRESENT) LISINOPRIL (05/01-PRESENT) TELEMETRY MONITORING SAP Drafter Refrigeration Crystal [employer] Winform Viewer (This form is maintained as a part of the permanent medical record) 2014 [employer]. All Rights Reserved [email or web address] Cell [facility] HOSPITALFlorinda
--- NOTE | 2019-05-03 11:54 | PQF ---
CLINICAL DOCUMENTATION IMPROVEMENT CLARIFICATION FORM: ICD-10 Updated PLEASE DO AN ADDENDUM TO THE PROGRESS NOTE WITH ANY DOCUMENTATION UPDATES OR ADDITIONS AND CARRY THROUGH TO DC SUMMARY. THANK YOU. Date: 05/03/19 ATTN: DR. NI Please exercise your independent, professional judgment in responding to the clarification form. Clinical indicators are provided on the bottom of this form for your review Please check appropriate box(s): [ x ] Protein Calorie Malnutrition: [ ] Mild [ x ] Moderate [ ] Severe [ ] Other Malnutrition (please specify) __ [ ] Underweight without malnutrition [ ] Cachexia [ ] Other diagnosis [ ] Unable to determine In addition, please specify: Present on Admission (POA): [ x ] Yes [ ] No [ ] Unable to determine CLINICAL INDICATORS - SIGNS / SYMPTOMS / LABS / RESULTS AND LOCATION IN MR RD ASSESSMENT 05/01: "SEVERE MUSCLE WASTING TO HAMSTRING, GASTROCNEMIUS; MODERATE ORBITAL FAT LOSS; MODERATE CLAVICLE, PECTORALIS, DELTOIDS WASTING; HAIR THIN AND BRITTLE" BMI 21.3 RISKS: DEMENTIA (ER NOTE GIB (ER NOTE) ADVANCED AGE SEPSIS (H&P) CARDIOMYOPATHY (ER NOTE) TREATMENT: DIETARY CONSULT (05/01) RECOMMENDATION OF NUTRITIONAL SUPPLEMENTS (RD ASSESSMENT) ASSISTANCE WITH MEALS (RD ASSESSMENT) Moderate Malnutrition (in acute illness) Energy Intake: <75% of estimated energy requirement for > 7 days Weight Loss: 1-2%/1 week; 5%/ 1 month; 7.5%/3 months Other: mild body fat loss; mild muscle mass loss; mild fluid accumulation; Severe Malnutrition (in acute illness) Energy Intake: < 50% of estimated energy requirement for > 5 days Weight Loss: >1-2%/1 week; >5%/1 month; >7.5%/3 months SAP Agriculture Laborer Crystal Reports Winform ViewerOther: moderate body fat loss; moderate muscle mass loss; moderate- severe fluid accumulation; measurably reduced application support consultant strength Moderate Malnutrition (in chronic illness) Energy Intake: <75% of estimated energy requirement for >1 month Weight Loss: 5%/1 month; 7.5%/3 months; 10%/6 months; 20%/1 year Other: mild body fat loss; mild muscle mass loss; mild fluid accumulation Severe Malnutrition (in chronic illness) Energy Intake: <75% of estimated energy requirement for >1 month Weight Loss: >5%/1 month; >7.5%/3 months; >10%/6 months; >20%/1 year Other: severe body fat loss; severe muscle mass loss; severe fluid accumulation ; measurably reduced application support consultant strength (This form is maintained as a part of the permanent medical record) 2014 [employer]. All Rights Reserved [email or web address] Cell [facility]
--- NOTE | 2019-05-03 15:09 | EKG ---
Test Reason : Blood Pressure : / mmHG Vent. Rate : 105 BPM Atrial Rate : 098 BPM P-R Int : 000 ms QRS Dur : 106 ms QT Int : 338 ms P-R-T Axes : 000 -17 143 degrees QTc Int : 446 ms Atrial fibrillation with rapid ventricular response Septal infarct , age undetermined Abnormal ECG Confirmed by LEANNA GASCA DO ([id number]), art editor NIESHA RAMOS ([id number]) on 05/03/2019 3:09:11 PM Referred By: Confirmed By:LEANNA GASCA DO
[2019-05-03 15:28] VITALS: BP 96/53; TEMP 98.2
--- NOTE | 2019-05-04 08:42 | DIS ---
DATE OF ADMISSION: 05/01/2019 DATE OF DISCHARGE: 05/03/2019 RESIDENT: Chris Soni MD ADMITTING ATTENDING: Ronen Hernandez MD DISCHARGING ATTENDING: Ronen Hernandez MD CONSULTS: Palliative Care on 05/01, discussed out of hospital DNR and got it signed by Dr. Hernandez. PROCEDURES: Chest x-ray on 04/30, bilateral pleural effusion with adjacent atelectasis versus infiltrate. PRIMARY DIAGNOSES: 1. Sepsis likely secondary to malnutrition. 2. Recent gastrointestinal bleed with microcytic anemia. 3. Dementia. 4. Congestive heart failure. 5. Hypokalemia. 6. Protein malnutrition. SECONDARY DIAGNOSES: 1. Diabetes type 2. 2. Benign prostatic hypertrophy. 3. History of prostate cancer. DISCHARGE MEDICATIONS: Continue home medications. 1. Ascorbic acid 500 mg p.o. b.i.d. 2. Aspirin 81 mg p.o. daily. 3. Casodex 50 mg daily. 4. Calcium citrate 500 mg b.i.d. 5. Carvedilol 12.5 mg b.i.d. 6. Cholecalciferol 2000 units b.i.d. 7. Vitamin B12 1000 mcg daily. 8. Digoxin 0.125 mg daily. 9. Cymbalta 30 mg daily. 10. Furosemide 40 mg daily. 11. Lisinopril 5 mg daily. 12. Magnesium oxide 400 mg daily. 13. Melatonin 3 mg at bedtime. 14. Metformin 1000 mg b.i.d. 15. Thera-M caplet one tab daily. 16. Tamsulosin 0.4 mg daily. 17. Zinc sulfate 220 mg daily. 18. Pepcid 20 mg b.i.d. 19. Lantus 12 units subcu daily. 20. Prostate Control softgel one tablet daily. DISCONTINUED MEDICATIONS: 1. Levaquin. 2. Cefepime. 3. Vancomycin. HISTORY OF PRESENT ILLNESS: The patient is an 89-year-old male with a past medical history of dementia, CHF , recent history of right pleural effusion, status post thoracentesis about 2 weeks ago who was sent to [facility] from [facility] for a low O2 saturation and low blood pressure. He was recently discharged from [facility] on 04/30/2019 after admission for acute GI bleed. During that admission, he had a slight drop in hemoglobin and Eliquis was discontinued. He was seen by GI , but procedure was not done during that admission. There have been no new episodes of GI bleed. No fevers, chills, chest pain, dyspnea, cough, nausea, vomiting, diarrhea. In the ED, he was found to have atrial fibrillation with RVR at a rate of 105. On EKG he had a white count of 13.7, was found to be hypotensive and hypoxic at the [facility], so he was started on vanc, cefepime, and Levaquin. He also received 2 L normal saline. 1. Sepsis secondary to poor p.o. intake initially thought to be PNA or UTI but ruled out. Initial blood pressure was 92/61, tachycardic to 124 with a white blood cell of 13.7 in the ED. * Chest x-ray showed atelectasis versus infiltrate with bilateral pleural effusions. * In the ED: 2 L normal saline, vanc, cefepime and Levaquin were given. * Procal was negative at 0.1 * Continued on Levaquin due to possible UTI. * Urine culture ended up growing nothing and blood culture did not grow anything, so the Levaquin was discontinued before discharge. * UA was dirty with leukocytes of 500, white blood cells 21-50, and bacteria 4+ . * He received normal saline at 100 mL/h during the initial admission stay and hypotension resolved. * Palliative Care consulted and spoke with daughter. * Saturating room air without tachypnea at 100%. 2. Recent GI bleed with microcytic anemia. Hemoglobin on presentation was 11.6, trended down to 9.3 after fluids, most likely dilutional. * Stopped the patient's Eliquis due to bleeding last hospital stay. * No procedure was performed at last visit because hemoglobin was stable. 3. Dementia. Daughter states the patient is at baseline. * Speech Eval was consulted and recommended ground diet with thin liquids. 4. Congestive heart failure. Continue home medications. 5. Diabetes type 2. Continue home medications. 6. Benign prostatic hypertrophy. Continue home medications. 7. History of prostate cancer. Continue home chemo regimen. 8. Hypokalemia, resolved. 9. Protein malnutrition. Total protein 4.6, albumin 2.5. * Consulted dietitian. * Recommend sugar-free diet shakes t.i.d. and Glucerna shakes b.i.d. between meals. DISPOSITION: To [facility] stable. DISCHARGE INSTRUCTIONS: 1. Location: half-way. 2. Diet: Consistent carbs with fluid restriction of 1800 mL, sugar free Mighty Shakes t.i.d. with meals. Glucerna shakes b.i.d. between meals. 3. Activity: As tolerated. Work with PT and OT in [facility]. 4. Followup with Dr. Rodgers in 7 days of discharge. Job ID: [id number] [facility] CENTERFlorinda
== END 2019-05-03 17:17 | DRG 872 ==
LOC: ERS 08:17 → 2NO 13:40
PROVIDERS: ADMIT Family Medicine; ATTEND Family Medicine
DX: A41.9 Sepsis, unspecified organism (principal); E44.0 Moderate protein-calorie malnutrition; K92.2 Gastrointestinal hemorrhage, unspecified; I13.0 Hypertensive heart and chronic kidney disease with heart failure and stage 1 through stage 4 chronic kidney disease, or unspecified chronic kidney disease; I42.9 Cardiomyopathy, unspecified; F03.90 Unspecified dementia, unspecified severity, without behavioral disturbance, psychotic disturbance, mood disturbance, and anxiety; E87.6 Hypokalemia; Z66 Do not resuscitate; Z51.5 Encounter for palliative care; D50.9 Iron deficiency anemia, unspecified; C67.9 Malignant neoplasm of bladder, unspecified; Z68.21 Body mass index [BMI] 21.0-21.9, adult; I50.9 Heart failure, unspecified; I48.91 Unspecified atrial fibrillation; E83.39 Other disorders of phosphorus metabolism; E11.22 Type 2 diabetes mellitus with diabetic chronic kidney disease; N40.0 Benign prostatic hyperplasia without lower urinary tract symptoms; N18.3 Chronic kidney disease, stage 3 (moderate); K21.9 Gastro-esophageal reflux disease without esophagitis; F32.9 Major depressive disorder, single episode, unspecified; R40.2362 Coma scale, best motor response, obeys commands, at arrival to emergency department; R40.2142 Coma scale, eyes open, spontaneous, at arrival to emergency department; R40.2242 Coma scale, best verbal response, confused conversation, at arrival to emergency department; R65.20 Severe sepsis without septic shock
CPT/HCPCS: 36415; 36416; 51701; 71045; 80048; 80053; 81003; 81015; 82553; 83605; 83690; 83735; 83880; 84100; 84145; 84484; 85014; 85018; 85025; 85049; 87040; 87086; 90471; 90670; 93005; 96361; 96365; 96366; 96367; G0009; J0692; J1815; J1956

== ENCOUNTER 2019-05-16 07:39 | Emergency (ER) | payer MEDICARE, BC, OTHER ==
[2019-05-16] MEDS ORDERED: Azithromycin 500 MG VIAL ONE (07:54)
[2019-05-16] MEDS ORDERED: Cefepime 2 GM VIAL ONE (07:54)
[2019-05-16] MEDS ORDERED: Vancomycin 1 GM/200 ML BAG ONE (07:55)
[2019-05-16 08:14] LABS: Hemoglobin 12.7 g/dL (14.0-18.0); Mean Corpuscular HGB CONC 30.5 g/dL (32.0-36.0); Mean Corpuscular Hemoglobin 31.1 pg (27.0-31.0); Mean Platelet Volume 7.1 fL (7.4-10.4); Platelet Count 384 thou/uL (130-400); RBC Distribution Width 16.3 % (11.5-14.5); White Blood Cell (WBC) Count 29.8 thou/uL (4.8-10.8)
[2019-05-16 08:38] LABS: ALT (SGPT) 21 U/L (8-55); AST (SGOT) 44 U/L (5-34); Albumin 3.5 g/dL (3.4-4.8); Alkaline Phosphatase 124 U/L (40-110); Anion Gap 18 mmol/L (10-20); BUN (Urea Nitrogen) 26 mg/dL (8.4-25.7); Bilirubin, Total 0.8 mg/dL (0.2-1.2); Calc. Creatinine Clearance 0 mL/min (70-130); Calcium 9.1 mg/dL (7.8-10.44); Carbon Dioxide 25 mmol/L (23-31); Chloride 101 mmol/L (98-107); Estimated GFR-MDRD 51; Globulin 3.1 g/dL (2.4-3.5); Glucose 27 mg/dL (83-110); Potassium 5.3 mmol/L (3.5-5.1); Protein, Total 6.6 g/dL (5.8-8.1); Sodium 139 mmol/L (136-145)
[2019-05-16] MEDS ORDERED: Dextrose 50% Abboject 50 ML SYRINGE ONE ×2 (08:39)
[2019-05-16 08:40] LABS: Band 6 % (5-11); Elliptocytes SLIGHT = 2-5 cells (100X) (0-1/hpf); Lymphocytes 4 % (21-51); MDiff Complete? YES; Macrocytosis SLIGHT = 6-15 cells (100X) (0-5/hpf); Monocytes 2 % (0-10); Neutrophil 87 % (42-75); Platelet Morphology Comment Appears Adequate; Polychromasia SLIGHT = 2-3 cells (100X) (0-2/hpf)
[2019-05-16 09:26] LABS: Bilirubin Negative (Negative); Blood, Urine 1+ (Negative); Clarity Turbid (Clear); Glucose, Urine (Dipstick) Normal (Negative); Leukocyte 500 Leu/uL (Negative); Nitrite Negative (Negative); Protein, Urine (Dipstick) 30 mg/dL (Neg-Trace); Squamous Epithelial 0-3 HPF (0-3); Urobilinogen Normal mg/dL (Less than 2); WBC/HPF Greater than 50 HPF (0-3)
[2019-05-16 09:40] LABS: Yeast-Budding 2+ HPF (None Seen)
[2019-05-16 09:41] LABS: Bacteria/HPF 2+ HPF (None Seen); Yeast-Hyphae 1+ HPF (None Seen)
--- NOTE | 2019-05-16 09:56 | CT ---
CHEST CT SCAN WITHOUT IV CONTRAST: Date: 05/16/2019 HISTORY: Evaluate for COVID. Shortness of breath. Tachycardia. Previously diagnosed with pneumonia, on antibio tics. FINDINGS: Moderate bilateral pleural effusions. Patchy alveolar nodular parenchymal changes bilaterally, primar samantha in the perihilar region and lower lobes, as well as some patchy interstitial changes, but certain ly could represent bilateral pneumonia. There is some abnormal soft tissue-fluid changes within the l eft mainstem bronchus and extending into the upper and lower lobe bronchi branches. There is very het erogeneous bony demineralization, including mild vertical height loss of numerous visualized thoracic and lumbar vertebral bodies, evidence for mild compressions, age indeterminate, without definite acu te changes. Three vessel coronary artery calcific disease. IMPRESSION: 1. Fairly extensive bilateral perihilar and mid and lower lung zone alveolar nodular and interstitia l parenchymal changes, evidence for bilateral pneumonia, with associated at least moderate size bilat eral pleural effusions. There is no convincing evidence for abnormal findings typical for COVID-19. 2. Fluid and/or mucus within the left mainstem bronchus and extending into the left upper and lower main bronchi. 3. Bony demineralization with multiple visualized thoracic and lumbar vertebral bodies but show some vertical height loss, having more of an old appearance. Findings discussed with Dr. Haines in the ER at 0920 hours. CODE CR. POS: RRE
--- NOTE | 2019-05-17 14:57 | EKG ---
Test Reason : Blood Pressure : / mmHG Vent. Rate : 131 BPM Atrial Rate : 129 BPM P-R Int : 000 ms QRS Dur : 136 ms QT Int : 354 ms P-R-T Axes : 000 098 249 degrees QTc Int : 522 ms Atrial fibrillation with rapid ventricular response with premature ventricular or aberrantly conducte d complexes Rightward axis Non-specific intra-ventricular conduction block T wave abnormality, consider inferolateral ischemia or digitalis effect Abnormal ECG Confirmed by SAUL AYALA, RAMIRO ([id number]), editor publications NIESHA RAMOS ([id number]) on 05/17/2019 2:56:52 PM Referred By: Confirmed By:RAMIRO HUGHES MD
== END 2019-05-16 09:27 | disposition expired ==
LOC: ERS 07:39
DX: A41.9 Sepsis, unspecified organism (principal); R65.21 Severe sepsis with septic shock; J96.00 Acute respiratory failure, unspecified whether with hypoxia or hypercapnia; Z20.828 Contact with and (suspected) exposure to other viral communicable diseases; E11.22 Type 2 diabetes mellitus with diabetic chronic kidney disease; E11.51 Type 2 diabetes mellitus with diabetic peripheral angiopathy without gangrene; I13.0 Hypertensive heart and chronic kidney disease with heart failure and stage 1 through stage 4 chronic kidney disease, or unspecified chronic kidney disease; I50.9 Heart failure, unspecified; N18.3 Chronic kidney disease, stage 3 (moderate); K21.9 Gastro-esophageal reflux disease without esophagitis; F32.9 Major depressive disorder, single episode, unspecified; Z79.4 Long term (current) use of insulin; Z79.82 Long term (current) use of aspirin; Z79.899 Other long term (current) drug therapy
CPT/HCPCS: 51702; 71250; 80053; 83605; 85025; 87040; 93005; 96365; 96375; 99291; J0456; J0692; J3370; U0002; 81003; 81015; 87635; A4353; U0003